=== PATIENT | female | born 1960 | race Two or more races ===

== ENCOUNTER 2024-06-23 10:59 | Outpatient (REF) | payer MEDICAID, SELFPAY ==
--- OUTSIDE RECORDS SUMMARY | 2024-06-23 12:19 | XMS_ITS | Encounter Summary ---
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 Name Role Phone Unavailable Primary Care Provider Unavailabl e Reason for Referral * Consultation (Routine) - Authorized Specialty Diagnoses / Procedures Referred By Estela t Referred To Contact Optometry Diagnoses Type 2 diabetes mellitus with hyperglycemia, without long-term current use of insulin (CMS/HCC) Primary hypertension Naheed Howe MD [address] [place] [address] Phone: tel: fax: [facility] [address] [place] [address] Phone: tel: fax: Referral ID Status Reason Start Date Expiration Date Visits Requested Visits Authorized [id number] Authorized Consult and Treat 06/23/2024 06/23/2025 1 1 * Consultation (Routine) - Authorized Specialty Diagnoses / Procedures Referred By Estela diamond Referred To Contact Behavioral Health Diagnoses Major depression with psychotic features ([facility]/HCC) Naheed Howe MD [address] [place] [address] Phone: tel: fax: Referral ID Status Reason Start Date Expiration Date Visits Requested Visits Authorized [id number] Authorized Specialty Services Required 06/23/2024 06/23/2025 1 1 Reason for Visit * Reason Comments Med Refill Encounter Details Date Type Department Care Team (Latest Contact Info) Description 06/23/2024 10:40 AM EST Office Visit [facility] [address] [place] [address] Naheed Howe MD [address] [place] [address] Arthralgia, unspecified joint (Primary Dx); Major depression with psychotic features (CMS/HCC); Type 2 diabetes mellitus with hyperglycemia, without long-term current use of insulin (CMS/HCC); Primary hypertension; Acquired hypothyroidism Social History Tobacco Use Types Packs/Day Years Used Date Smoking Tobacco: Never Smokeless Tobacco: Never Tobacco Cessation:Counseling Given: Not Answered Comments Unknown Sex and Gender Information Value Date Recorded Sex Assigned at Female 12/18/2022 9:30 AM EDT Legal Sex Female 9:29 AM EDT Gender Identity Female 12/18/2022 9:30 AM EDT Sexual Orientation Don't know 12/18/2022 9: 30 AM EDT documented as of this encounter Last Filed Vital Signs Vital Sign Reading Time Taken Comments Blood Pressure 124/69 06/23/2024 10:15 AM EST Pulse 69 06/23/2024 10:15 AM EST Temperature 36 ??C (96.8 ??F) 06/23/2024 10:15 AM EST Respiratory Rate 18 06/23/2024 10:15 AM EST Oxygen Saturation 96% 06/23/2024 10:15 AM EST Inhaled Oxygen Concentration - - Weight 81.5 kg (179 lb 9.6 oz) 06/23/2024 10:15 AM EST Height - - Body Mass Index - - documented in this encounter Progress Notes * Naheed Howe MD - 06/23/2024 10:40 AM EST SUBJECTIVE: Ember Rodriguez is a 64 y.o. year old female who presents for [facility]/MANAGEMENT SPECIALIST needs meds . Denies recent illness, injury, or hospitalization. Patient here for new patient visit. She comes in with her daughter, she recently moved in from [place] on March 2024 due to mental health issues. PMHx: Hypertension, diabetes, hypothyroidism, major depression with psychotic features (recurrent hospitalizations, last hospitalization in [place] on March 2024 due to psychosis event). PSHx: BTL SocHx: She moved into some [place] on March 2024 where she used to live with her siblings. She is currently living with her daughter and her other daughter lives nearby, she has another daughter who lives in [place] and another 1 in [place]. She has a son that at age 20. She does not drink, she does not smoke or uses any recreational substances. She is from her for many years. Meds: Listed on medication list. She did not bring psych medications but reportedly her family sending them from [place] as they are controlled substances. Acute Concerns: Complaint of generalized bodyaches, arthralgias mainly in shoulders and knees x many years. She hasnot had any recent fall or accidents, she does not take any medication for that. Negative rash, fever, weight loss, diarrhea. Social History Social History Narrative She is from her . Lives with her daughter, has her 3 daughters on different states. She is currently unemployed, used to work many years ago, apparently stopped working due to disability Patient Active Problem List Diagnosis Major depression with psychotic features ([facility]) Type 2 diabetes mellitus with hyperglycemia, without long-term current use of insulin ([facility]) Primary hypertension Acquired hypothyroidism Arthralgia No family history on file. Review of Systems Constitutional: Negative for chills, fatigue and fever. HENT: Negative for congestion, ear pain, nosebleeds, rhinorrhea, sinus pressure, sore throat and trouble swallowing. Eyes: Negative for pain and discharge. Respiratory: Negative for cough, chest tightness and shortness of breath. Cardiovascular: Negative for chest pain, palpitations and leg swelling. Gastrointestinal: Negative for abdominal pain, blood in stool, constipation, diarrhea and nausea. Endocrine: Negative for polydipsia and polyuria. Genitourinary: Negative for dysuria, frequency, genital sores, pelvic pain and vaginal discharge. Musculoskeletal: Positive for arthralgias. Negative for back pain and neck pain. Skin: Negative for rash. Allergic/Immunologic: Negative for environmental allergies. Neurological: Negative for dizziness, seizures, weakness, light-headedness and headaches. Hematological: Negative for adenopathy. Psychiatric/Behavioral: Positive for confusion. Negative for agitation, behavioral problems, self-injury and suicidal ideas. The patient is nervous/anxious. OBJECTIVE: Vitals: 06/23/24 1015 BP: 124/69 Pulse: 69 Resp: 18 Temp: 96.8 ??F (36 ??C) SpO2: 96% Physical Exam HENT: Right Ear: Tympanic membrane and ear canal normal. Left Ear: Tympanic membrane and ear canal normal. Mouth/Throat: Mouth: Mucous membranes are moist. Pharynx: No oropharyngeal exudate or posterior oropharyngeal erythema. Eyes: Pupils: Pupils are equal, round, and reactive to light. Cardiovascular: Rate and Rhythm: Regular rhythm. Pulses: Normal pulses. Heart sounds: Normal heart sounds. No murmur heard. Pulmonary: Breath sounds: Normal breath sounds. Abdominal: General: Bowel sounds are normal. Palpations: Abdomen is soft. Tenderness: There is no abdominal tenderness. Musculoskeletal: Right shoulder: Tenderness present. Decreased range of motion. Left shoulder: Tenderness present. Right elbow: Tenderness present. Right hand: Tenderness present. Decreased range of motion. Decreased strength. Left hand: Decreased strength. Cervical back: Neck supple. Lumbar back: Tenderness present. Right knee: Decreased range of motion. Tenderness present over the medial joint line, MCL and patellar tendon. Skin: General: Skin is warm. Neurological: General: No focal deficit present. Mental Status: She is alert. Cranial Nerves: Cranial nerves 2-12 are intact. Motor: Motor function is intact. Coordination: Coordination is intact. Gait: Gait is intact. Psychiatric: Mood and Affect: Affect is flat. Speech: Speech is delayed. Behavior: Behavior normal. Behavior is cooperative. Thought Content: Thought content does not include homicidal or suicidal plan. Problem List Items Addressed This Visit Arthralgia - Primary Most likely OA, unclear if is related to medication side effect. Will start Tylenol twice daily x 1 to 2 weeks then as needed and follow-up with PCP Reconsult as needed if symptoms do not improve. Relevant Orders Hepatic Function Panel Major depression with psychotic features (CMS/HCC) Patient with flat affect, probably related to medications. Day will bring medications at next appointment, she will continue to take same medication from previous psychiatry until then. She feels safe at home and is able to reach out for safety, her family member is with her 24/11. Referred to team for evaluation, may need psychiatry evaluation for medications as well. Needs to follow-up with PCP in 1 to 2 months Relevant Orders Referral to Behavioral Health Syphilis Screen TSH with Reflex to Free T4 T-SPOT??.TB Type 2 diabetes mellitus with hyperglycemia, without long-term current use of insulin (CMS/HCC) Continue metformin 500 mg twice daily for now, tolerates well. Check labs including A1c and call back as needed abnormal results and follow-up with PCP 1 to 2 months Family will bring glucometer to order supplies of the same brand. Counseled re more frequent low calorie/carb meals. Check fgstk 1x daily Encouraged physical activity as tolerated. Referred to eye clinic Relevant Orders Comprehensive Metabolic Panel CBC auto differential Lipid Panel with Reflex to Direct LDL Vitamin D, 25-Hydroxy, Total, Immunoassay Albumin, Random Urine W/Creatinine Referral to Optometry Hemoglobin A1c Primary hypertension Controlled. Compliant w/meds Continue losartan 25mg and fu w me in 2mo Ordered labs Counseled re low salt diet/increase moderate physical activity. Check home BP BIW and prn CP/[facility]/MALIN Non smoking patient. Relevant Orders CBC auto differential Lipid Panel with Reflex to Direct LDL Referral to Optometry Acquired hypothyroidism Continue levothyroxine 88 mcg/day for now and check TSH, will call back as needed if medications need to be adjusted Follow-up with new PCP in 2 to 3 months Follow Up: No current outpatient medications on file prior to visit. No current facility-administered medications on file prior to visit. documented in this encounter Miscellaneous Notes * Assessment & Plan Note - Naheed Howe MD - 06/23/2024 11:43 AM EST Associated Problem(s): Arthralgia Most likely OA, unclear if is related to medication side effect. Will start Tylenol twice daily x 1 to 2 weeks then as needed and follow-up with PCP Reconsult as needed if symptoms do not improve. * Assessment & Plan Note - Naheed Howe MD - 06/23/2024 11:42 AM EST Associated Problem(s): Major depression with psychotic features (CMS/HCC) Patient with flat affect, probably related to medications. Day will bring medications at next appointment, she will continue to take same medication from previous psychiatry until then. She feels safe at home and is able to reach out for safety, her family member is with her 24/11. Referred to team for evaluation, may need psychiatry evaluation for medications as well. Needs to follow-up with PCP in 1 to 2 months * Assessment & Plan Note - Naheed Howe MD - 06/23/2024 11:41 AM EST Associated Problem(s): Type 2 diabetes mellitus with hyperglycemia, without long-term current use of insulin ([facility]) Continue metformin 500 mg twice daily for now, tolerates well. Check labs including A1c and call back as needed abnormal results and follow-up with PCP 1 to 2 months Family will bring glucometer to order supplies of the same brand. Counseled re more frequent low calorie/carb meals. Check fgstk 1x daily Encouraged physical activity as tolerated. Referred to eye clinic * Assessment & Plan Note - Naheed Howe MD - 06/23/2024 11:39 AM EST Associated Problem(s): Acquired hypothyroidism Continue levothyroxine 88 mcg/day for now and check TSH, will call back as needed if medications need to be adjusted Follow-up with new PCP in 2 to 3 months * Assessment & Plan Note - Naheed Howe MD - 06/23/2024 11:39 AM EST Associated Problem(s): Primary hypertension Controlled. Compliant w/meds Continue losartan 25mg and fu w me in 2mo Ordered labs Counseled re low salt diet/increase moderate physical activity. Check home BP BIW and prn CP/[facility]/MALIN Non smoking patient. documented in this encounter Plan of Treatment Upcoming Encounters Date Type Department Care Team (Late st Contact Info) Description 08/11/2024 9:45 AM EDT Office Visit [facility] MEDICINE [address] [place] [address] Naheed Howe MD [address] [place] [address] Scheduled Orders Name Type Priority Associated Diagnoses Orde r Schedule Comprehensive Metabolic Panel Lab Routine Type 2 diabetes mellitus with hyperglycemia, without long-term current use of insulin (CMS/HCC) Expected: 06/23/2024 (Approximate), Expires: 06/23/2025 CBC auto differential Lab Routine Type 2 diabetes mellitus with hyperglycemia, without long-term current use of insulin (CMS/HCC) Primary hypertension Expected: 06/23/2024 (Approximate), Expires: 06/23/2025 Lipid Panel with Reflex to Direct LDL Lab Routine Type 2 diabetes mellitus with hyperglycemia, without long-term current use of insulin (CMS/HCC) Primary hypertension Expected: 06/23/2024 (Approximate), Expires: 06/23/2025 Syphilis Screen Lab Routine Major depression with psychotic features (CMS/HCC) Expected: 06/23/2024 (Approximate), Expires: 06/23/2025 TSH with Reflex to Free T4 Lab Routine Major depression with psychotic features (CMS/HCC) Expected: 06/23/2024 (Approximate), Expires: 06/23/2025 T-SPOT??.TB Lab Routine Major depression with psychotic features (CMS/HCC) Expected: 06/23/2024 (Approximate), Expires: 06/23/2025 Vitamin D, 25-Hydroxy, Total, Immunoassay Lab Routine Type 2 diabetes mellitus with hyperglycemia, without long-term current use of insulin (CMS/HCC) Expected: 06/23/2024 (Approximate), Expires: 06/23/2025 Hepatic Function Panel Lab Routine Arthralgia, unspecified joint Expected: 06/23/2024 (Approximate), Expires: 06/23/2025 Albumin, Random Urine W/Creatinine Lab Routine Type 2 diabetes mellitus with hyperglycemia, without long-term current use of insulin (CMS/HCC) Expected: 06/23/2024 (Approximate), Expires: 06/23/2025 Hemoglobin A1c Lab Routine Type 2 diabetes mellitus with hyperglycemia, without long-term current use of insulin (CMS/HCC) Expected: 06/23/2024 (Approximate), Expires: 06/23/2025 Scheduled Referrals Name Type Priority Associated Diagnoses Orde r Schedule Referral to Behavioral Health Outpatient Referral Routine Major depression with psychotic features (CMS/HCC) Expected: 06/23/2024 (Approximate), Expires: 06/23/2025 Referral to Optometry Outpatient Referral Routine Type 2 diabetes mellitus with hyperglycemia, without long-term current use of insulin ([facility]) Primary hypertension Expected: 06/23/2024 (Approximate), Expires: 06/23/2025 documented as of this encounter Visit Diagnoses Diagnosis Arthralgia, unspecified joint- Primary Major depression with psychotic features ([facility]) Type 2 diabetes mellitus with hyperglycemia, without long-term current use of insulin ([facility]) Primary hypertension Unspecified essential hypertension Acquired hypothyroidism Unspecified hypothyroidism documented in this encounter
--- OUTSIDE RECORDS SUMMARY | 2024-06-23 12:19 | XMS_ITS | Encounter Summary ---
Author Organization [employer] Address [address] [facility] 7t [place] [address] Care Team Providers Care Shed Hand Name Role Phone Unavailable Primary Care Provider Unavailabl e Reason for Visit * Reason Onset Date Comments EMR records search 06/23/2024 Encounter Details Date Type Department Care Team (Late st Contact Info) Description 06/23/2024 Telephone [facility] [address] [place] [address] Petra Lawson RN EMR records search Social History Tobacco Use Types Packs/Day Years Used Date Smoking Tobacco: Never Smokeless Tobacco: Never Comments Unknown Sex and Gender Information Value Date Recorded Sex Assigned at Female 12/18/2022 9:30 AM EDT Legal Sex Female 9:29 AM EDT Gender Identity Female 12/18/2022 9:30 AM EDT Sexual Orientation Don't know 12/18/2022 9: 30 AM EDT documented as of this encounter Miscellaneous Notes * Telephone Encounter - Petra Lawson RN - 06/23/2024 10:39 AM EST Pt is new to [facility]. Outreach done x 2 years in 2022 and 2023 to contact pt to establish care without success. Pt is Yemeni speaking. Care Everywhere medical records search does not display any pt records. Pt is in [facility] visit at this time. documented in this encounter Plan of Treatment Upcoming Encounters Date Type Department Care Team (Late st Contact Info) Description 08/11/2024 9:45 AM EDT Office Visit [facility] MED[facility] [address] [place] [address] Naheed Howe MD [address] [place] [address] documented as of this encounter Visit Diagnoses Not on filedocumented in this encounter
--- OUTSIDE RECORDS SUMMARY | 2024-06-23 12:19 | XMS_ITS | Clinical Summary ---
Author Organization [employer] Address [address] [facility] [address]t [place] [address] Care Team Providers Care Professor Of Medicine Name Role Phone Unavailable Primary Care Provider Unavailabl e Allergies No known active allergies Medications metFORMIN (Glucophage) 500 MG tablet Take 1 tablet (500 mg) by mouth with breakfast and with evening meal. 60 tablet 11 5 06/23/19 26 Active losartan (Cozaar) 25 MG tablet Take 1 tablet (25 mg) by mouth Once per day. 30 tablet 11 5 06/23/19 26 Active levothyroxine (Synthroid) 88 MCG tablet Take 1 tablet (88 mcg) by mouth before breakfast. 30 tablet 11 5 06/23/19 26 Active acetaminophen (Tylenol Extra Strength) 500 MG tablet Take 1 tablet (500 mg) by mouth every 6 (six) hours if needed for mild pain. 120 tablet 5 07/24/19 25 Active Active Problems Problem Noted Date Diagnosed Date Major depression with psychotic features 025 Assessment & Plan (06/23/2024 11:42 AM EST): Patient with flat affect, probably related to [...] with PCP in 1 to 2 months Type 2 diabetes mellitus wit h hyperglycemia, without long-term current use of insulin 06/23/2024 Assessment & Plan (06/23/2024 11:41 AM EST): Continue metformin 500 mg twice daily for now, tolerates well. Check labs including A1c and call back as needed abnormal results and follow-up with PCP 1 to 2 months Family will bring glucometer to order supplies of the same brand. Counseled re more frequent low calorie/carb meals. Check fgstk 1x daily Encouraged physical activity as tolerated. Referred to eye clinic Primary hypertension 06/23/2024 Assessment & Plan (06/23/2024 11:39 AM EST): Controlled. Compliant w/meds Continue losartan 25mg and fu w me in 2mo Ordered labs Counseled re low salt diet/increase moderate physical activity. Check home BP BIW and prn CP/GREENWOOD/MALIN Non smoking patient. Acquired hypothyroidism 06/23/2024 Assessment & Plan (06/23/2024 11:39 AM EST): Continue levothyroxine 88 mcg/day for now and check TSH, will call back as needed if medications need to be adjusted Follow-up with new PCP in 2 to 3 months Arthralgia 06/23/2024 Assessment & Plan (06/23/2024 11:43 AM EST): Most likely OA, unclear if is related to medication side effect. Will start Tylenol twice daily x 1 to 2 weeks then as needed and follow-up with PCP Reconsult as needed if symptoms do not improve. Encounters Date Type Department Care Team Description 06/23/2024 10:40 AM EST Office Visit [facility] [address] [place] [id number] Naheed Howe MD Arthralgia, unspecified joint (Primary Dx); Major depression with psychotic features (CMS/HCC); Type 2 diabetes mellitus with hyperglycemia, without long-term current use of insulin (CMS/HCC); Primary hypertension; Acquired hypothyroidism 06/23/2024 Telephone [facility] [address] [place] [address] [phone] Petra Lawson RN EMR records search from Last 3 Months Social History Tobacco Use Types Packs/Day Years Used Date Smoking Tobacco: Never Smokeless Tobacco: Never Tobacco Cessation:Counseling Given: Not Answered Comments Unknown Sex and Gender Information Value Date Recorded Sex Assigned at Female 12/18/2022 9:30 AM EDT Legal Sex Female 9:29 AM EDT Gender Identity Female 12/18/2022 9:30 AM EDT Sexual Orientation Don't know 12/18/2022 9: 30 AM EDT Last Filed Vital Signs Vital Sign Reading [...] - - Body Mass Index - - Plan of Treatment Upcoming Encounters Date Type Department Care Team (Late st Contact Info) Description 08/11/2024 9:45 AM EDT Office Visit [facility] [address] [place], [place] [phone] Naheed Howe MD [address] [place] [address] Health Maintenance Due Date Last Done Comments CT Colonography 1962 Colonoscopy 1962 Colorectal Cancer Screening 1962 Depression Screening 1962 Diabetes: Hemoglobin A1C 1962 FIT DNA/Cologuard 1962 FIT 1962 FOBT 1962 HIV Screening 1962 Lipid Panel 1962 SDOH Screening 1962 Sigmoidoscopy 1962 Diabetes: Foot Exam 1972 Eye Exam 1972 Alcohol/Substance Use Screening 1974 Hepatitis C Screening 1980 DTaP/Tdap/Td Vaccines (1 - Tdap) 1981 Diabetes: Urine Protein Screening 1981 Pneumococcal Vaccine: 50+ Ye ars (1 of 2 - PCV) 1981 Pap Smear 1983 Cervical Cancer Screening 1992 HPV/Cotest 1992 Mammogram 2002 Zoster Vaccines (1 of 2) 2012 COVID-19 Vaccine ( - 2023-2 5 season) 2024 Influenza Vaccine (#1) 2024 Tobacco Screening 06/23/2025 06/23/2024 RSV Patients and Pa tients Aged 60 years or older (1 - 1-dose 75+ series) 2037 HIB Vaccines Aged Out No longer eligi ble based on patient's age to complete this topic HPV Vaccines Aged Out No longer eligi ble based on patient's age to complete this topic Hepatitis A Vaccines Aged Out No long er eligible based on patient's age to complete this topic Hepatitis B Vaccines Aged Out No long er eligible based on patient's age to complete this topic IPV Vaccines Aged Out No longer eligi ble based on patient's age to complete this topic Meningococcal Vaccine Aged Out No bebe brittnee eligible based on patient's age to complete this topic RSV under 20 months Aged Out No longe r eligible based on patient's age to complete this topic Rotavirus Vaccines Aged Out No longer eligible based on patient's age to complete this topic Insurance [facility] C3
--- OUTSIDE RECORDS SUMMARY | 2024-06-23 12:19 | XMS_ITS | Encounter Summary ---
Author Organization [employer] Address [address] [place] [address] [address] [place] [address] Care Team Providers Care Damage Cutter Name Role Phone Unavailable Primary Care Provider Unavailabl e Reason for Visit * Reason Onset Date Comments New Patient 12/18/2022 Encounter Details Date Type Department Care Team (Late st Contact Info) Description 12/18/2022 Telephone [facility] [address] [place] [address] Luke Lantigua MD [address] [place], [place] [phone] New Patient Social History Tobacco Use Types Packs/Day Years Used Date Smoking Tobacco: Never Assessed Comments Unknown Sex and Gender Information Value Date Recorded Sex Assigned at Female 12/18/2022 9:30 AM EDT Legal Sex Female 9:29 AM EDT Gender Identity Female 12/18/2022 9:30 AM EDT Sexual Orientation Don't know 12/18/2022 9: 30 AM EDT documented as of this encounter Miscellaneous Notes * Telephone Encounter - Mariama Martínez - 12/18/2022 9:32 AM EDT 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 EFFECTIVE SINCE 12/18/2022 documented in this encounter Plan of Treatment Upcoming Encounters Date Type Department Care Team (Late st Contact Info) Description 08/11/2024 9:45 AM EDT Office Visit [facility] [address] [place], [place] [phone] Naheed Howe MD [address] [place] [address] documented as of this encounter Visit Diagnoses Not on filedocumented in this encounter
[2024-06-23 13:20] LABS: MANUAL DIFF FLAG NO
[2024-06-23 13:31] LABS: Basophils Absolute Auto 0.1 X10*3/uL (0.0-0.2); Eosinophils Absolute Auto 0.2 X10*3/uL (0.0-0.4); Eosinophils Percent Auto 2.9 % (0-4); Hematocrit 38.3 % (37.0-47.0); Hemoglobin 12.7 g/dl (12.0-16.0); Imm Gran Abs Auto 0.01 X10*3/uL (0.00-0.03); Imm Gran Pct Auto 0.1 % (0.0-0.4); Lymphocytes Absolute Auto 2.4 X10*3/uL (1.2-4.9); Lymphocytes Percent Auto 34.2 % (20-40); Mean Corpuscular HGB Conc 33.2 g/dl (31.0-35.0); Mean Corpuscular Hemoglobin 31.2 pg (27.0-33.0); Mean Corpuscular Volume 94.1 fL (80.0-98.0); Mean Platelet Volume 10.8 fL (9.4-12.3); Monocytes Absolute Auto 0.4 X10*3/uL (0.1-1.2); Monocytes Percent Auto 5.5 % (2-11); Neutrophils Absolute Auto 3.9 x10*3/uL (2.0-8.3); Neutrophils Percent Auto 56.3 % (45-73); Platelet Count 272 X10*3/uL (160-400); Red Blood Count 4.07 X10*6/uL (4.20-5.50); White Blood Count 6.9 X10*3/uL (4.8-10.8)
[2024-06-23 13:43] LABS: Alanine Aminotransferase 14 U/L (0-31); Albumin Level 4.2 g/dL (3.5-5.0); Alkaline Phosphatase 88 U/L (39-117); Anion Gap 11 (12-20); Aspartate Amino Transferase 21 U/L (5-31); Bilirubin Direct 0.2 mg/dL (0.0-0.5); Bilirubin Total 0.4 mg/dL (0.0-1.0); Blood Urea Nitrogen 14 mg/dL (9-16); Calcium 9.7 mg/dL (8.4-10.2); Carbon Dioxide 29 mmol/L (22-29); Chloride 104 mmol/L (96-108); Cholesterol 217 mg/dL (<200); Estimated Glomerular Filt Rate > 60; Glucose Random 102 mg/dL (60-115); HDL Cholesterol 61 mg/dL (>40); LDL Cholesterol Calculated 135 mg/dL (<100); Potassium 4.1 mmol/L (3.3-5.1); Sodium 140 mmol/L (135-145); Triglycerides 106 mg/dL (<150)
[2024-06-23 13:45] LABS: Estimated Average Glucose 123 mg/dL; Hemoglobin A1C 135.4349 umol/L; Hemoglobin A1c % 5.9 % (<6.0); Total Hemoglobin (HGBA1C) 3287.3487 umol/L
[2024-06-23 13:48] LABS: Microalbum/Creatinine Ratio Ur 11.6 ug/mg cr (<30)
[2024-06-23 14:01] LABS: TSH reflex Free T4 1.32 uIU/mL (0.32-4.0); Vitamin D 25-OH Total 76.6 ng/mL (>30)
[2024-06-23 14:11] LABS: Reflex LDLD? No
[2024-06-24 08:41] LABS: Syphilis Screen Nonreactive (Nonreactive)
[2024-06-26 16:09] LABS: TS Negative Control Passed; TS Panel A 0; TS Panel B 1; TS Positive Control Passed; TSpotTB Negative (Negative)
== END 2024-06-23 11:00 | disposition home or self-care (01) ==
LOC: HO.HHCL 10:59
PROVIDERS: Visit Provider Internal Medicine
DX: E11.65 Type 2 diabetes mellitus with hyperglycemia (principal); I10 Essential (primary) hypertension; F32.3 Major depressive disorder, single episode, severe with psychotic features; M25.50 Pain in unspecified joint
CPT/HCPCS: 36415; 80053; 80061; 82043; 82248; 82306; 82570; 83036; 84443; 85025; 86481; 86780

== ENCOUNTER 2024-08-11 16:06 | Outpatient (REF) | payer MEDICAID, SELFPAY ==
--- OUTSIDE RECORDS SUMMARY | 2024-08-11 18:00 | XMS_ITS | Encounter Summary ---
Author Organization [email or web address] Address [address] [facility] [address] [place] [address] Care Team Providers Care Housing Assistant Property Manager Name Role Phone Naheed Howe MD Primary Care Provider + Reason for Referral * Consultation (Routine) - Pending Review Specialty Diagnoses / Procedures Referred By Estela diamond Referred To Contact Gastroenterology Diagnoses Encounter for screening colonoscopy Naheed Howe MD [address] [place] [address] Phone: tel: fax: Referral ID Status Reason Start Date Expiration Date Visits Requested Visits Authorized [id number] Pending Review Specialty Services Required 08/11/2024 08/11/2025 1 1 * Imaging (Routine) - Authorized Specialty Diagnoses / Procedures Referred By Estela diamond Referred To Contact Radiology Diagnoses Painful lumpy left breast Procedures BI US Breast Limited Left Naheed Howe MD [address] [place] [address] Phone: tel: fax: [address] Phone: tel: fax: Referral ID Status Reason Start Date Expiration Date V isits Requested Visits Authorized [id number] Authorized 08/11/2024 08/11/2025 1 1 * Imaging (Routine) - Authorized Specialty Diagnoses / Procedures Referred By Estela diamond Referred To Contact Radiology Diagnoses Screening mammogram, encounter for Procedures BI Mammogram Screening Tomosynthesis Bilateral Naheed Howe MD [address] [place] [address] Phone: tel: fax: [address] Phone: tel: fax: Referral ID Status Reason Start Date Expiration Date V isits Requested Visits Authorized [id number] Authorized 08/11/2024 08/11/2025 1 1 * Consultation (Routine) - Pending Review Specialty Diagnoses / Procedures Referred By Estela diamond Referred To Contact Audiology Diagnoses Decreased hearing of both ears Naheed Howe MD [address] [place], [place] Phone: tel: fax: Referral ID Status Reason Start Date Expiration Date Visits Requested Visits Authorized [id number] Pending Review Specialty Services Required 08/11/2024 08/11/2025 1 1 * Imaging (Routine) - Authorized Specialty Diagnoses / Procedures Referred By Estela diamond Referred To Contact Radiology Diagnoses Chronic post-traumatic headache, not intractable Procedures CT Head w/o Contrast Naheed Howe MD [address] [place] [address] Phone: tel: fax: [address] Phone: tel: fax: Referral ID Status Reason Start Date Expiration Date V isits Requested Visits Authorized [id number] Authorized 08/11/2024 08/11/2025 1 1 Reason for Visit * Reason Comments New patient Encounter Details Date Type Department Care Team (Late st Contact Info) Description 08/11/2024 9:45 AM EDT Office Visit [facility] [address] [place] [address] Naheed Howe MD [address] [place] [address] Type 2 diabetes mellitus with hyperglycemia, without long-term current use of insulin (CMS/HCC) (Primary Dx); Primary hypertension; Acquired hypothyroidism; Vulvar lesion; Major depression with psychotic features (CMS/HCC); Breast lesion; Tinnitus of both ears; Encounter for screening colonoscopy; Chronic post-traumatic headache, not intractable; Decreased hearing of both ears; Painful lumpy left breast; Screening mammogram, encounter for Social History Tobacco Use Types Packs/Day Years Used Date Smoking Tobacco: Never Smokeless Tobacco: Never Tobacco Cessation:Counseling Given: Not Answered Depression Answer Date Recorded Patient Health Questionnaire-9 Score 21 08/11/2024 Patient Health Questionnaire-9 Score 21 08/11/2024 Last PHQ-9: Questionnaire Data Not on file 0 08/11/2024 Housing Stability Answer Date Recorded What is your housing situation today? I have shelia koch 08/02/[address] you li ve. Do you have problems with any of the following? None of the above 08/02/2024 Food Insecurity Answer Date Recorded Within the past 12 months, y ou worried that your food would run out before you got money to buy more: Never True 08/02/2024 Within the past 12 months,th e food you bought just didn't last and you didn't have enough money to get more: Never True 05/2024 Transportation Answer Date Recorded In the past 12 months, has l ack of transportation kept you from medical appts, meetings, work or from getting things needed for daily living? No 08/02/2024 Utilities Answer Date Recorded In the past 12 months, has t he electric, gas, oil or water company threatened to shut off services in your home? No 08/02/2024 Depression Answer Date Recorded Patient Health Questionnaire-2 Score 6 08/11/2024 Internet Access Answer Date Recorded Internet Access Q1 No 08/11/2024 Internet Access Q2 I do not want or need it 08/02 Comments Unknown Sex and Gender Information Value Date Recorded Sex Assigned at Female 12/18/2022 9:30 AM EDT Legal Sex Female 9:29 AM EDT Gender Identity Female 12/18/2022 9:30 AM EDT Sexual Orientation Don't know 12/18/2022 9: 30 AM EDT documented as of this encounter Last Filed Vital Signs Vital Sign Reading Time Taken Comments Blood Pressure 123/57 08/11/2024 9:42 AM EDT Pulse 76 08/11/2024 9:42 AM EDT Temperature 36.1 ??C (97 ??F) 08/11/2024 9:42 AM EDT Respiratory Rate 16 08/11/2024 9:42 AM EDT Oxygen Saturation 98% 08/11/2024 9:42 AM EDT Inhaled Oxygen Concentration - - Weight 80.3 kg (177 lb 2 oz) 08/11/2024 9:42 AM EDT Height 152.4 cm (5') 08/11/2024 9:42 AM EDT Body Mass Index 34.59 08/11/2024 9:42 AM EDT documented in this encounter Plan of Treatment Upcoming Encounters Date Type Department Care Team (Late st Contact Info) Description 09/22/2024 9:45 AM EDT Office Visit [facility] [address] [place] [address] Dotty Huang, OD [address] [place] [address] Scheduled Orders Name Type Priority Associated Diagnoses Orde r Schedule Ferritin Lab Routine Type 2 diabetes mellitus with hyperglycemia, without long-term current use of insulin ([facility]) Expected: 08/11/2024, Expires: 08/11/2025 CT Head w/o Contrast Imaging Routine Chronic post-traumatic headache, not intractable Expected: 08/11/2024 (Approximate), Expires: 08/11/2025 Chlamydia/N. Gonorrhoeae RNA, TMA, Urogenitial Microbiology Routine Vulvar lesion Ordered: 08/11/2024 Bacterial Vaginosis Microbiology Routine Vulvar lesion Expected: 08/11/2024 (Approximate), Expires: 08/11/2025 Herpes Simplex Virus Culture with Reflex Typing Microbiology Routine Vulvar lesion Expected: 08/11/2024 (Approximate), Expires: 08/11/2025 BI Mammogram Screening Tomosynthesis Bilateral Imaging Routine Screening mammogram, encounter for Expected: 08/11/2024 (Approximate), Expires: 10/11/2025 BI US Breast Limited Left Imaging Routine Painful lumpy left breast Expected: 08/11/2024 (Approximate), Expires: 08/11/2025 Scheduled Referrals Name Type Priority Associated Diagnoses Order Schedule Referral to Audiology Outpatient Referral Routine Decreased hearing of both ears Expected: 08/11/2024 (Approximate), Expires: 08/11/2025 Referral to Gastroenterology Outpatient Referral Routine Encounter for screening colonoscopy Expected: 08/11/2024 (Approximate), Expires: 08/11/2025 documented as of this encounter Procedures Procedure Name Priority Date/Time Associated Diagnosis Comments POCT GLUCOSE Routine 08/11/2024 9:44 AM EDT Type 2 diabetes mellitus with hyperglycemia, without long-term current use of insulin (CMS/[facility]) documented in this encounter Results * POCT Glucose (08/11/2024 9:44 AM EDT) [facility] Glucose Blood, POC 137 60 - 200 mg/dL QC Media Lot # [id number] Lot# Expiration Date [id number] Blood Capillary blood specimen / Unknown 08/11/2024 9:44 AM EDT Naheed Howe MD POINT OF CARE TEST ENTER /EDIT ORDERABLES Final Result documented in this encounter Visit Diagnoses Diagnosis Type 2 diabetes mellitus with hyperglycemia, without long-term current use of insulin (CMS/HCC)- Primary Primary hypertension Unspecified essential hypertension Acquired hypothyroidism Unspecified hypothyroidism Vulvar lesion Other specified noninflammatory disorder of vulva and perineum Major depression with psychotic features (CMS/HCC) Breast lesion Tinnitus of both ears Unspecified tinnitus Encounter for screening colonoscopy Chronic post-traumatic headache, not intractable Decreased hearing of both ears Painful lumpy left breast Screening mammogram, encounter for documented in this encounter Additional Health Concerns Assessment Noted Time PHQ-9 Depression Total Score: 21 025 10:30 AM EDT documented as of this encounter Care Teams Housing Assistant Property Manager Relationship Specialty Start Date End Date Naheed Howe MD [address] [place] [address] PCP - General Internal Medicine 08/11/24 documented as of this encounter
--- OUTSIDE RECORDS SUMMARY | 2024-08-11 18:00 | XMS_ITS | Encounter Summary ---
Author Organization [employer] Address [address] [place] [address] [address] [place] [address] Care Team Providers Care Server Assistant Name Role Phone Naheed Howe MD Primary Care Provider + Reason for Visit * Reason Onset Date Comments New Patient 12/18/2022 Encounter Details Date Type Department Care Team (Late st Contact Info) Description 12/18/[address] [facility] [address] [place] [address] Luke Lantigua MD [address] [place] [address] New Patient Social History Tobacco Use Types [...] been transfer over to wait list for ADMINISTRATIVE INTERN. EFFECTIVE SINCE 12/18/2022 documented in this encounter Plan of Treatment Upcoming Encounters Date Type Department Care Team (Late st Contact Info) Description 09/22/2024 9:45 AM EDT Office Visit [facility] [address] [place] [address] Dotty Huang, OD [address] [place] [address] documented as of this encounter Visit Diagnoses Not on filedocumented in this encounter Care Teams Server Assistant Relationship Specialty Start Date End Date Naheed Howe MD [address] [place] [address] PCP - General Internal Medicine 08/11/24 documented as of this encounter
--- OUTSIDE RECORDS SUMMARY | 2024-08-11 18:00 | XMS_ITS | Encounter Summary ---
Author Organization [employer] Address [address] [facility] [address] [place] [address] Care Team Providers Care Kieselguhr Regenerator Operator Name Role Phone Unavailable Primary Care Provider Unavailabl e Reason for Visit * Reason Onset Date Comments Chart prep 08/09/2024 Encounter Details Date Type Department Care Team ([facility] st Contact Info) Description 08/09/2024 Telephone [facility] [address] [place] [address] Sloane Monge [place] Chart prep Social History Tobacco Use Types Packs/Day Years Used Date Smoking Tobacco: Never Smokeless Tobacco: Never Housing Stability Answer Date Recorded What is [...] off services in your home? No 08/02/2024 Internet Access Answer Date Recorded Internet Access Q1 Yes 08/02/2024 Internet Access Q2 Not on file 08/02/2024 Comments Unknown Sex and Gender Information Value Date Recorded Sex Assigned at Female 12/18/2022 9:30 AM EDT Legal Sex Female 9:29 AM EDT Gender Identity Female 12/18/2022 9:30 AM EDT Sexual Orientation Don't know 12/18/2022 9: 30 AM EDT documented as of this encounter Miscellaneous Notes * Telephone Encounter - Sloane Monge [place] - 08/09/2024 2:40 PM EDT Chart Prep Labs: done Images: not applicable Vaccines due: yes Referrals: appointment pending Screenings: colonoscopy, mammogram, and pap smear Overdue care gaps: Glucose and PHQ-9 documented in this encounter Plan of Treatment Upcoming Encounters Date Type Department Care Team (Late st Contact Info) Description 09/22/2024 9:45 AM EDT Office Visit [facility] [address] [place] [address] Dotty Huang, OD [address] [place] [address] documented as of this encounter Visit Diagnoses Not on filedocumented in this encounter
--- OUTSIDE RECORDS SUMMARY | 2024-08-11 18:00 | XMS_ITS | Clinical Summary ---
Author Organization [employer] Address [address] [facility] 7[address] [place] [address] Care Team Providers Care Marine Service Station Attendant Name Role Phone Naheed Howe MD Primary Care Provider + Allergies No known active allergies Medications * This document contains information received from the source organization and may not represent a complete record from that organization. metFORMIN (Glucophage) 500 MG tablet Take 1 tablet (500 mg) by mouth with breakfast and with evening meal. 60 tablet 06/23/19 25 026 Active losartan (Cozaar) 25 MG tablet Take 1 tablet (25 mg) by mouth Once per day. 30 tablet 11 06/23/19 25 026 Active levothyroxine (Synthroid) 88 MCG tablet Take 1 tablet (88 mcg) by mouth before breakfast. 30 tablet 06/23/19 25 026 Active Blood Pressure Monitoring (Blood Pressure Cuff) misc Use daily as prescribed 1 each 08/12/19 25 Active FREESTYLE LITE test strip Use to test blood sugar 1x times daily 100 each 08/12/19 25 026 Active Lancets misc Use to test blood sugar 1x times daily 100 each 08/12/19 25 Active Alcohol Swabs 70 % pads Use to test blood sugar 1x times daily 100 each 08/12/19 25 Active Blood Glucose Monitoring Suppl (FreeStyle Gratiot Lite) w/Device kit Use to test blood sugar 1x times daily 1 kit 08/12/19 25 Active valACYclovir (Valtrex) 1 g tablet Take 1 tablet (1,000 mg) by mouth Once per day for 5 days. 5 tablet 3 08/12/19 25 025 Active risperiDONE (RisperDAL) 2 MG tabletIndicati ons:Major Depressive Disorder Take 1 tablet (2 mg) by mouth with evening meal. 90 tablet 08/12/19 25 Active traZODone (Desyrel) 50 MG tablet Take 1 tablet (50 mg) by mouth if needed at bedtime for sleep. 90 tablet 08/12/19 25 Active sertraline (Zoloft) 100 MG tablet Take 1 tablet (100 mg) by mouth Once per day. To take with 25mg tablet, Total dose of 125mg/d 90 tablet 08/12/19 25 026 Active sertraline (Zoloft) 25 MG tablet Take 1 tablet (25 mg) by mouth Once per day. To take with 100mg tablet, Total dose of 125mg/d 90 tablet 08/12/19 25 Active acetaminophen (Tylenol Extra Strength) 500 MG tablet Take 1 tablet (500 mg) by mouth every 6 (six) hours if needed for mild pain. 120 tablet 06/23/19 25 025 sertraline (Zoloft) 100 MG tablet Take 1 tablet (100 mg) by mouth Once per day. 90 tablet 08/12/19 25 025 Discontinued sertraline (Zoloft) 25 MG tablet Take 1 tablet (25 mg) by mouth Once per day. 90 tablet 08/12/19 25 025 Discontinued Active Problems Problem Noted Date Diagnosed Date Vulvar lesion 08/11/2024 Breast lesion 08/11/2024 Tinnitus of both ears 08/11/2024 Encounter for screening colonoscopy 08/11/2024 Major depression with psychotic features 025 Assessment [...] needed if symptoms do not improve. Encounters * This document contains information received from the source organization and may not represent a complete record from that organization. Date Type Department Care Team Description 08/11/2024 9:45 AM EDT Office Visit [facility] [address] [place] [phone] Naheed Howe MD Type 2 diabetes mellitus with hyperglycemia, without long-term current use of insulin (CMS/HCC) (Primary Dx); Primary hypertension; Acquired hypothyroidism; Vulvar lesion; Major depression with psychotic features (CMS/HCC); Breast lesion; Tinnitus of both ears; Encounter for screening colonoscopy; Chronic post-traumatic headache, not intractable; Decreased hearing of both ears; Painful lumpy left breast; Screening mammogram, encounter for 08/11/2024 Travel 08/09/[address] [facility] [address] [place] [phone] Sloane Monge MA Chart prep 08/03/2024 Population Health Risk Score [facility] () Department [address] [place] [phone] Provider, Population Health Generic 08/02/2024 Patient Outreach [facility] [address] [place] [phone] Naheed Howe MD Pre-visit Planning (SDOH screening negative and tobacco screening negative) 06/30/2024 Telephone [facility] [address] [place] [address] Em Larose MA DTA Application (I called the patient at [phone], to inform her that her DTA application cannot be completed at this time, because she has to be evaluated by her PCP. I reached a recording stating that the person is not available. I was unable to leave a message. I then called her emergency contact Hilda, and reached a voicemail. I left a message, asking the patient to return my call at ext [phone]. She has a TIRE SETTER appointment on 08/11/24 at 9:30.) 06/23/2024 10:40 AM EST Office Visit [facility] [address] [place] [phone] Naheed Howe MD Arthralgia, unspecified joint (Primary Dx); Major depression with psychotic features (CMS/HCC); Type 2 diabetes mellitus with hyperglycemia, without long-term current use of insulin (CMS/HCC); Primary hypertension; Acquired hypothyroidism 06/23/[address] [facility] [address] [place] [phone] Petra Lawson RN EMR records search from [...] Mass Index 34.59 08/11/2024 9:42 AM EDT Plan of Treatment Upcoming Encounters Date Type Department Care Team (Late st Contact Info) Description 09/22/2024 9:45 AM EDT Office Visit [facility] [address] [place] [address] Dotty Huang, OD [address] [place] [address] Health Maintenance Due Date Last Done Comments CT Colonography 1962 Colonoscopy 1962 Colorectal Cancer Screening 1962 FIT DNA/Cologuard 1962 FIT 1962 FOBT 1962 HIV Screening 1962 Sigmoidoscopy 1962 Diabetes: Foot Exam 1972 Eye Exam 1972 Alcohol/Substance Use Screening 1974 Hepatitis C Screening 1980 DTaP/Tdap/Td Vaccines (1 - Tdap) 1981 Pneumococcal Vaccine: 50+ Years (1 of 2 - PCV) 1981 Pap Smear 1983 Cervical Cancer Screening 1992 HPV/Cotest 1992 Mammogram 2002 Zoster Vaccines (1 of 2) 2012 COVID-19 Vaccine ( - 2023-2 5 season) 2024 Influenza Vaccine (#1) 2024 Diabetes: Hemoglobin A1C 12/21/2024 06/23/2024 Depression Monitoring 02/10/2025 08/11/2024 , 08/11/2024 Diabetes: Urine Protein Screening 06/23/2025 06/23/2024 Lipid Panel 06/23/2025 06/23/2024 Depression Screening 08/11/2025 08/11/2024, 08/11/2024 SDOH Screening 08/11/2025 08/11/2024 Tobacco Screening 08/11/2025 08/11/2024 RSV Patients and Patients Aged 60 years or older (1 - [...] on patient's age to complete this topic Procedures Procedure Name Priority Date/Time Associated Diagnosis Comments POCT GLUCOSE Routine 08/11/2024 9:44 AM EDT Type 2 diabetes mellitus with hyperglycemia, without long-term current use of insulin (CMS/HCC) HEMOGLOBIN A1C Routine 06/23/2024 11:03 AM EST Type 2 diabetes mellitus with hyperglycemia, without long-term current use of insulin (CMS/HCC) ALBUMIN, RANDOM URINE W/CREATININE Routine 06/23/2024 11:03 AM EST Type 2 diabetes mellitus with hyperglycemia, without long-term current use of insulin (CMS/HCC) HEPATIC FUNCTION PANEL Routine 06/23/2024 11:03 AM EST Arthralgia, unspecified joint VITAMIN D,25-OH,TOTAL,IA Routine 06/23/2024 11:03 AM EST Type 2 diabetes mellitus with hyperglycemia, without long-term current use of insulin (CMS/HCC) T-SPOT(R).TB Routine 06/23/2024 11:03 AM EST Major depression with psychotic features (CMS/HCC) TSH W/REFLEX TO FT4 Routine 06/23/2024 1 1:03 AM EST Major depression with psychotic features (CMS/HCC) SYPHILIS SCREEN Routine 06/23/2024 11:03 AM EST Major depression with psychotic features (CMS/HCC) LIPID PANEL WITH REFLEX TO DIRECT LDL Routine 06/23/2024 11:03 AM EST Type 2 diabetes mellitus with hyperglycemia, without long-term current use of insulin (CMS/HCC) Primary hypertension CBC WITH AUTO DIFFERENTIAL Routine 06/23/2024 11:03 AM EST Type 2 diabetes mellitus with hyperglycemia, without long-term current use of insulin ([facility]) Primary hypertension COMPREHENSIVE METABOLIC PANEL Routine 06/23/2024 11:03 AM EST Type 2 diabetes mellitus with hyperglycemia, without long-term current use of insulin ([facility]) from Last 3 Months Results * POCT Glucose (08/11/2024 9:44 AM EDT) Glucose Blood, POC 137 60 - 200 mg/dL QC Media Lot # [id number] Lot# Expiration Date Blood Capillary blood specimen / Unknown 08/11/2024 9:44 AM EDT Naheed Howe MD POINT OF CARE TEST ENTER /EDIT ORDERABLES Final Result * Syphilis Screen (06/23/2024 11:03 AM EST) Syphilis Screen Nonreactive Nonreactive [facility] Blood 06/23/2024 11:0 3 AM EST 06/23/2024 1:12 PM EST Naheed Howe MD LAB BLOOD ORDERABLES Fin al Result [facility] [address] [place] [address] [phone] * Vitamin D, 25-Hydroxy, Total, Immunoassay (06/23/2024 11:03 AM EST) Vitamin D 25-OH Total 76.6 >30 ng/mL [facility] Comment:Health Based Referen ce Values*< 20 ng/mL Sedulbsiy41-75 ng/mL Insufficient> 30 ng/mL Sufficient*Yuni BYERS. N Engl J Med. 2007;357:266-280Care must be taken in interpreting Vitamin D results fromdifferent laboratories and methodologies. Published datademonstrated that results from patients undergoinghemodialysis may show a negative bias when tested withvarious automated 25-OH vitamin D assays when compared toLC-MS/MS.When testing samples from patients whose predominant form ofVitamin D is Vitamin D2, such as patients receiving VitaminD2 supplementation, results that are subtherapeutic shouldbe confirmed with another method such as LC-MS/MS. Blood 06/23/2024 11:0 3 AM EST 06/23/2024 1:12 PM EST us Naheed Howe MD LAB BLOOD ORDERABLES Fin al Result [facility] [address] [place] [phone] * T-SPOT??.TB (06/23/2024 11:03 AM EST) Pathologist [facility] T Spot TB Negative Negative [facility] Comment:A negative test resu lt does not exclude the possibilityof exposure to or infection with Mycobacteriumtuberculosis (M. tuberculosis). Patients with recentexposure to TB infected individuals exhibiting anegative T-SPOT.TB result should be considered forretesting within 6 weeks or if other relevant clinicalsymptoms indicate. Results from T-SPOT.TB testing mustbe used in conjunction with each individual'sepidemiological history, current medical status,and results of other diagnostic evaluations.The T-SPOT.TB test is qualitative and results arereported as positive, borderline, or negative, giventhat the test controls perform as expected. In linewith the Centers for Disease Control and Prevention's2010 recommendation to report quantitative measurementsalongside the qualitative result, the laboratoryprovides spot counts for informational purposes only.The T-SPOT.TB test should not be interpreted as aquantitative test. TS PANEL A 0 [facility] TS PANEL B 1 [facility] Negative Control Passed [facility] Positive Control Passed [facility] Comment:For additional infor esa, please refer tohttp://education.[employer]/faq/BJJ329(This link is being provided for informational/educational purposes only.)THIS TEST WAS PERFORMED AT:[employer]/DAKSHA [id number] [place] [address]LKUUALJJESSICA HOLT MD,PHD 06/23/2024 11:0 3 AM EST 06/23/2024 1:12 PM EST us Naheed Howe MD LAB BLOOD ORDERABLES Fin al Result Performing Organization Address City/[facility]/ZIP Co de Phone Number [facility] [address] [place] [phone] * TSH with Reflex to Free T4 (06/23/2024 11:03 AM EST) TSH reflex Free T4 1.32 0.32 - 4.0 uIU/mL [facility] Blood 06/23/2024 11:0 3 AM EST 06/23/2024 1:12 PM EST us Naheed Howe MD LAB BLOOD ORDERABLES Fin al Result Performing Organization Address City/[facility] Co de Phone Number [facility] [address] [place] [phone] * (ABNORMAL) Lipid Panel with Reflex to Direct LDL (06/23/2024 11:03 AM EST) Triglycerides 106 <150 mg/dL [facility] Comment:Desirable Triglyceri de: less than 150 mg/dLBorderline High Triglyceride 150-199 mg/dLHigh Triglyceride: 200-499 mg/dLVery High Triglyceride: greater than or equal to 5OO mg/dL Cholesterol 217(H) <200 mg/dL [facility] Comment:Desirable Cholestero l: less than 200 mg/dLBorderline High Cholesterol: 200-239 mg/dLHigh Cholesterol: greater than 239 mg/dL LDL Cholesterol Calculated 135(H) <100 mg/dL [facility] Comment:Desirable LDL: less than 100 mg/dLNear Optimal/Above Optimal LDL: 110- 129 mg/dLBorderline High LDL: 130-159 mg/dLHigh LDL: 160-189 mg/dLVery High LDL: greater than or equal to 190 mg/dL HDL Cholesterol 61 >40 mg/dL [facility] Comment:Desirable HDL: great er than 40 mg/dL Note: This HDL assay may give artificially low results in patients with liver disease. Blood 06/23/2024 11:0 3 AM EST 06/23/2024 1:12 PM EST Naheed Howe MD LAB BLOOD ORDERABLES Fin al Result Performing Organization Address [facility] de Phone Number [facility] [address] [place] [address] [phone] * Albumin, Random Urine W/Creatinine (06/23/2024 11:03 AM EST) Creatinine, Urine 136.90 mg/dL [facility] Microalbumin Urine 16.0 mg/L [facility] Microalbum Creatinine Ratio Ur 11.6 <30 ug/mg cr [facility] Comment:Albumin/Creatinine R atio Reference Ranges: Normal: < 30 ug/mg creatinine Microalbuminuria: 30 - 300 ug/mg creatinineClinical Albuminuria: > 300 ug/mg creatinine Urine (Urine, Random) 06/23/2024 11:03 AM EST 06/23/2024 1:11 PM EST us Naheed Howe MD LAB URINE ORDERABLES Fin al Result Performing Organization Address [facility] de Phone Number [facility] [address] [place] [address] [phone] * (ABNORMAL) CBC auto differential (06/23/2024 11:03 AM EST) White Blood Count 6.9 4.8 - 10.8 X10*3/uL [facility] Red Blood Count 4.07(L) 4.20 - 5.50 X10*6/uL [facility] Hemoglobin 12.7 12.0 - 16.0 g/dl [facility] Hematocrit 38.3 37.0 - 47.0 % [facility] Mean Corpuscular Volume 94.1 80.0 - 98.0 fL [facility] Mean Corpuscular Hemoglobin 31.2 27.0 - 33.0 pg [facility] Mean Corpuscular HGB Conc 33.2 31.0 - 35.0 g/dl [facility] Red Cell Distribution Width 12.0 11.0 - 16.0 % [facility] Platelet Count 272 160 - 400 X10*3/uL [facility] Mean Platelet Volume 10.8 9.4 - 12.3 fL [facility] Neutrophils Percent Auto 56.3 45 - 73 % [facility] Imm Gran Pct Auto 0.1 0.0 - 0.4 % [facility] Lymphocytes Percent Auto 34.2 20 - 40 % [facility] Monocytes Percent Auto 5.5 2 - 11 % [facility] Eosinophils Percent Auto 2.9 0 - 4 % [facility] Basophils Percent Auto 1.0 0 - 2 % [facility] NRBC Pct Auto 0.0 0.0 - 0.2 /100WBC [facility] Neutrophils Absolute Auto 3.9 2.0 - 8.3 x10*3/uL [facility] Imm Gran Abs Auto 0.01 0.00 - 0.03 X10*3/uL [facility] Lymphocytes Absolute Auto 2.4 1.2 - 4.9 X10*3/uL [facility] Monocytes Absolute Auto 0.4 0.1 - 1.2 X10*3/uL [facility] Eosinophils Absolute Auto 0.2 0.0 - 0.4 X10*3/uL [facility] Basophils Absolute Auto 0.1 0.0 - 0.2 X10*3/uL [facility] NRBC Abs Auto 0.000 0.0 - 0.012 X10*3/uL [facility] Blood Venous blood specimen / Unknown 06/23/2024 11:03 AM EST 06/23/2024 1:12 PM EST us Naheed Howe MD LAB BLOOD ORDERABLES Fin al Result Performing Organization Address [facility]/ZIP Co de Phone Number [facility] [address] [place] [address] [phone] * Hemoglobin A1c (06/23/2024 11:03 AM EST) Hemoglobin A1c 5.9 <6.0 % [facility] Comment:Hemoglobin A1C Refer ence Range Adults: 4.8 - 6.0 % Non diabetic: < 6.0 % Goal: < 7.0 %Additional Action Suggested: > 8.0 %Note: Hemoglobin A1c results are invalid for patients with abnormal amounts of HbF. Blood transfusions may impact the HbA1c concentration in the patient sample. Estimated Average Glucose 123 mg/dL [facility] Comment:eAG = Estimated ave rage glucose which is %A1C expressed asaverage glucose, using the formula of the C8A-GbdipwrMmrxwqh Glucose study (ADAG), Diabetes Care, Vol.31,#8,Dec. 2007 Blood Venous blood specimen / Unknown 06/23/2024 11:03 AM EST 06/23/2024 1:12 PM EST Naheed Howe MD LAB BLOOD ORDERABLES Fin al Result Performing Organization Address [facility] Co de Phone Number [facility] [address] [place] [address] [phone] * Hepatic Function Panel (06/23/2024 11:03 AM EST) Bilirubin, Direct 0.2 0.0 - 0.5 mg/dL [facility] Blood Venous blood specimen / Unknown 06/23/2024 11:03 AM EST 06/23/2024 1:12 PM EST Nhaeed Howe MD LAB BLOOD ORDERABLES Fin al Result Performing Organization Address [facility] Co de Phone Number [facility] [address] [place] [address] [phone] * (ABNORMAL) Comprehensive Metabolic Panel (06/23/2024 11:03 AM EST) Sodium 140 135 - 145 mmol/L [facility] Potassium 4.1 3.3 - 5.1 mmol/L [facility] Chloride 104 96 - 108 mmol/L [facility] Carbon Dioxide 29 22 - 29 mmol/L [facility] Anion Gap 11(L) 12 - 20 [facility] Urea Nitrogen (BUN) 14 9 - 16 mg/dL [facility] Creatinine, Serum 0.71 0.5 - 1.4 mg/dL [facility] Estimated Glomerular Filt Rate >60 [facility] Comment:Chronic Kidney Disea se: Estimated GFR < 60 mL/min/1.07o3Vubkgc Kidney Disease: Estimated GFR < 15 mL/min/1.73m2 Glucose 102 60 - 115 mg/dL [facility] Calcium 9.7 8.4 - 10.2 mg/dL [facility] Bilirubin, Total 0.4 0.0 - 1.0 mg/dL [facility] Aspartate Amino Transferase 21 5 - 31 U/L [facility] Alanine Aminotransferase 14 0 - 31 U/L [facility] Total Protein 8.0 6.5 - 8.0 g/dL [facility] Albumin Level 4.2 3.5 - 5.0 g/dL [facility] Alkaline Phosphatase 88 39 - 117 U/L [facility] Blood Venous blood specimen / Unknown 06/23/2024 11:03 AM EST 06/23/2024 1:12 PM EST us Naheed Howe MD LAB BLOOD ORDERABLES Fin al Result [facility] [address] [place] [phone] from Last 3 Months Insurance [facility] C3 Care Teams Marine Service Station Attendant Relationship Specialty Start Date End Date Naheed Howe MD [address] [place] [phone] PCP - General Internal Medicine 08/11/24
--- OUTSIDE RECORDS SUMMARY | 2024-08-11 18:00 | XMS_ITS | Encounter Summary ---
Author Organization [employer] Address [address] [facility] [address] [place] [address] Care Team Providers Care Gold Leaf Printer Name Role Phone Naheed Howe MD Primary Care Provider + Encounter Details Date Type Department Care Team (Latest Contact Info) Description 08/11/2024 Travel Social History Tobacco Use Types Packs/Day Years Used Date Smoking Tobacco: Never Smokeless Tobacco: Never Depression Answer Date Recorded Patient Health Questionnaire-9 [...] AM EDT documented as of this encounter Plan of Treatment Upcoming Encounters Date Type Department Care Team (Late st Contact Info) Description 09/22/2024 9:45 AM EDT Office Visit [facility] [address] [place], [place] [phone] Dotty Huang, OD [address] [place] [address] documented as of this encounter Visit Diagnoses Not on filedocumented in this encounter Additional Health Concerns Assessment Noted Time PHQ-9 Depression Total Score: 21 025 10:30 AM EDT documented as of this encounter Care Teams Gold Leaf Printer Relationship Specialty Start Date End Date Naheed Howe MD [address] [place] [phone] PCP - General Internal Medicine 08/11/24 documented as of this encounter
[2024-08-12 04:04] LABS: CT PCR NOT DETECTED (Not Detect.); NG PCR NOT DETECTED (Not Detect.)
[2024-08-12 10:25] LABS: Bacterial Vaginosis PCR NEGATIVE (Negative); Candida Group PCR NOT DETECTED (Not Detect); Candida glab krusei PCR NOT DETECTED (Not Detect); Trichomonas vaginalis PCR NOT DETECTED (Not Detect)
== END 2024-08-11 16:07 | disposition home or self-care (01) ==
LOC: HO.HHCLNP 16:06
PROVIDERS: Visit Provider Internal Medicine
DX: N90.89 Other specified noninflammatory disorders of vulva and perineum (principal)
CPT/HCPCS: 81515; 87255; 87491; 87591

== ENCOUNTER 2024-09-16 10:19 | Outpatient (REF) | payer MEDICAID, SELFPAY ==
--- OUTSIDE RECORDS SUMMARY | 2024-09-16 10:37 | XMS_ITS | Encounter Summary ---
Author Organization [employer] Address [address] [place] [address] [address] [place] [address] Care Team Providers Care Meat Market Manager Name Role Phone Naheed Howe MD Primary Care Provider + Reason for Visit * Reason Onset Date Comments New Patient 12/18/2022 Encounter Details Date Type Department Care Team (Late st Contact Info) Description 12/18/2022 Telephone [facility] [address] [place] [phone] Luke Lantigua MD [address] [place] [address] New Patient Social History Tobacco Use Types [...] been transfer over to wait list for PREP MANAGER. EFFECTIVE SINCE 12/18/2022 documented in this encounter Plan of Treatment Upcoming Encounters Date Type Department Care Team (Late st Contact Info) Description 09/22/2024 9:45 AM EDT Office Visit [facility] [address] [place], [place] [phone] Dotty Huang, OD [address] [place] [address] 10/10/2024 10:00 AM EDT Office Visit [facility] [address] [place], [place] [phone] Jessica Elmore [address] [place], [place] [phone] documented as of this encounter Visit Diagnoses Not on filedocumented in this encounter Care Teams Meat Market Manager Relationship Specialty Start Date End Date Naheed Howe MD [address] [place] [phone] PCP - General Internal Medicine 08/11/24 documented as of this encounter
--- OUTSIDE RECORDS SUMMARY | 2024-09-16 10:37 | XMS_ITS | Clinical Summary ---
Author Organization [email or web address] Address [address] [place] [address] Care Team Providers Care Special Education Resource Teacher Name Role Phone Naheed Howe MD Primary Care Provider + Allergies No known active allergies Medications * This document contains information received from the source organization and may not represent a complete record from that organization. metFORMIN (Glucophage) 500 MG tablet Take 1 tablet (500 mg) by mouth with breakfast and with evening meal. 60 tablet 5 06/23/19 26 Active losartan (Cozaar) 25 MG tablet Take 1 tablet (25 mg) by mouth Once per day. 30 tablet 5 06/23/19 26 Active levothyroxine (Synthroid) 88 MCG tablet Take 1 tablet (88 mcg) by mouth before breakfast. 30 tablet 5 06/23/19 26 Active Blood Pressure Monitoring (Blood Pressure Cuff) misc Use daily as prescribed 1 each 5 Active FREESTYLE LITE test strip Use to test blood sugar 1x times daily 100 each 5 08/12/19 26 Active Lancets misc Use to test blood sugar 1x times daily 100 each 5 Active Alcohol Swabs 70 % pads Use to test blood sugar 1x times daily 100 each 5 Active Blood Glucose Monitoring Suppl (FreeStyle Zelienople Lite) w/Device kit Use to test blood sugar 1x times daily 1 kit 5 Active risperiDONE (RisperDAL) 2 MG tabletIndicatio ns:Major Depressive Disorder Take 1 tablet (2 mg) by mouth with evening meal. 90 tablet 5 Active traZODone (Desyrel) 50 MG tablet Take 1 tablet (50 mg) by mouth if needed at bedtime for sleep. 90 tablet 5 Active sertraline (Zoloft) 100 MG tablet Take 1 tablet (100 mg) by mouth Once per day. To take with 25mg tablet, Total dose of 125mg/d 90 tablet 5 08/12/19 26 Active sertraline (Zoloft) 25 MG tablet Take 1 tablet (25 mg) by mouth Once per day. 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 Start Valtrex x 5d (recurrence) and advised to start meds AHMET within the first 572 hours of starting symptoms. She is not sexually active at this time and feels safe. Check STI labs Breast lesion 08/11/2024 Assessment & Plan (08/18/2024 2:03 PM EDT): On left breast at 4-5 O'clock, will order mammogram and breast ultrasound Family will try to retrieve mammogram from [place] as apparently this is not a new finding. Tinnitus of both ears 08/11/2024 Assessment & Plan (08/18/2024 2:08 PM EDT): Reassurance given to patient and family, explained that most of the times the sound will disappear with noise or when patient is speaking. Given that it is related to some hearing loss, I will refer to audiology and follow-up at next visit Encounter for screening colonoscopy 08/11/2024 Assessment & Plan (08/18/2024 2:03 PM EDT): Refer to GI Major depression with psychotic features 025 Assessment & Plan (08/18/2024 2:05 PM EDT): Seems to be stable with no psychotic events, has some flat affect. She has been referred to and will need psychiatry evaluation to adjust medications. I will continue her on Risperdal, Zoloft and rx trazodone as needed only. Patient feels safe at home and is able to reach out for safety, she will call her daughters. The family has crisis number Assessment & Plan (06/23/2024 11:42 AM EST): [...] use of insulin 06/23/2024 Assessment & Plan (08/18/2024 2:09 PM EDT): Controlled, A1c was at goal 2 months ago. Continue metformin 500 mg twice daily for now, tolerates well. Counseled re more frequent low calorie/carb meals. Check fgstk 1x daily Encouraged physical activity as tolerated. She has appointment at eye clinic next month She has not had diabetic neuropathy LDL not at goal, will repeat in 6 months Assessment & Plan (06/23/2024 11:41 AM EST): [...] clinic Primary hypertension 06/23/2024 Assessment & Plan (08/18/2024 1:53 PM EDT): Controlled. Compliant w/meds Continue losartan 25mg and fu w me in 6mo Counseled re low salt diet/increase moderate physical activity. Check home BP BIW and prn CP/[place]/MALIN Non smoking patient. Assessment & Plan (06/23/2024 11:39 AM EST): Controlled. Compliant w/meds Continue losartan 25mg and fu w me in 2mo Ordered labs Counseled re low salt diet/increase moderate physical activity. Check home BP BIW and prn CP/[place]/MALIN Non smoking patient. Acquired hypothyroidism 06/23/2024 Assessment & Plan (08/18/2024 2:00 PM EDT): TSH is at goal, continue levothyroxine 88 mcg/day and follow-up in 6-month Reminded to take the medication on empty stomach Assessment & Plan (06/23/2024 11:39 AM EST): [...] organization. Date Type Department Care Team Description 08/24/2024 Telephone [employer] Information Management [address] [place] [phone] Naheed Howe MD 08/24/2024 Travel 08/11/2024 9:45 AM EDT Office Visit [facility] [address] [place] [phone] Naheed Howe MD Type 2 diabetes mellitus with hyperglycemia, without long-term current use of insulin (CMS/HCC) (Primary Dx); Primary hypertension; Acquired hypothyroidism; Vulvar lesion; Major depression with psychotic features (CMS/HCC); Breast lesion; Tinnitus of both ears; Encounter for screening colonoscopy; Decreased hearing of both ears; Painful lumpy left breast; Screening mammogram, encounter for; Chronic post-traumatic headache, not intractable 08/11/2024 Orders Only [facility] [address] [place] [address] [phone] Naheed Howe MD 08/11/2024 Travel 08/09/2024 Telephone [facility] [address] [place] [phone] Sloane Monge MA Chart prep 08/03/2024 Population Health Risk Score [facility] ([facility]) Department [address] [place] [phone] Provider, Population Health Generic 08/02/2024 Patient Outreach [facility] [address] [place] [phone] Naheed Howe MD Pre-visit Planning (SDOH screening negative and tobacco screening negative) 06/30/2024 Telephone [employer] [facility] [address], [place] [phone] Em Larose MA DTA Application (I called the patient at [phone], to inform her that her DTA application [...] patient to return my call at ext [phone]. She has a [employer]PER[employer] appointment on 08/11/24 at 9:30.) 06/23/2024 10:40 AM EST Office Visit [facility] [address] [place] [phone] Naheed Howe MD Arthralgia, unspecified joint (Primary Dx); Major depression with psychotic features (CMS/HCC); Type 2 diabetes mellitus with hyperglycemia, without long-term current use of insulin (CMS/HCC); Primary hypertension; Acquired hypothyroidism 06/23/2024 Telephone [facility] [address] [place] [address] [phone] Petra Lawson RN EMR records search from [...] Description 09/22/2024 9:45 AM EDT Office Visit [facility] [address] [place], [place] [phone] Dotty Huang, OD [address] [place], [place] [phone] 10/10/2024 10:00 AM EDT Office Visit [facility] [address] [place], [place] [phone] Ramírez, Jessica [address] [place], [place] [phone] Health Maintenance Due Date Last Done Comments [...] (#1) 2024 Diabetes: Hemoglobin A1C 12/21/2024 06/23/2024 Diabetes: Urine Protein Screening 06/23/2025 06/23/2024 Lipid [...] patient's age to complete this topic Meningococcal B Vaccine Aged Out No l onger eligible based on patient's age to complete [...] Procedure Name Priority Date/Time Associated Diagnosis Comments CHLAMYDIA/N. GONORRHOEAE RNA, TMA, UROGENITAL Routine 08/11/2024 4:08 PM EDT Vulvar lesion HERPES CULTURE WITH REFLEX TYPING Routine 08/11/2024 11:00 AM EDT BACTERIAL VAGINOSIS PANEL Routine 08/11/2024 11:00 AM EDT POCT GLUCOSE Routine 08/11/2024 9:44 AM EDT Type 2 diabetes mellitus with hyperglycemia, without long-term current use of insulin ([facility]) HEMOGLOBIN A1C Routine 06/23/2024 11:03 AM EST Type 2 diabetes mellitus with hyperglycemia, without long-term current use of insulin ([facility]) ALBUMIN, RANDOM URINE W/CREATININE Routine 06/23/2024 11:03 AM EST Type 2 diabetes mellitus with hyperglycemia, without long-term current use of insulin ([facility]) HEPATIC FUNCTION PANEL Routine 06/23/2024 11:03 AM [...] current use of insulin (CMS/HCC) Primary hypertension COMPREHENSIVE METABOLIC PANEL Routine 06/23/2024 11:03 AM EST Type 2 diabetes mellitus with hyperglycemia, without long-term current use of insulin (CMS/HCC) from Last 3 Months Results * Chlamydia/N. Gonorrhoeae RNA, TMA, Urogenitial (08/11/2024 4:08 PM EDT) Pathologist [facility] CT PCR NOT DETECTED Not Detect. [facility] Comment:A not detected test result does not exclude the possibilityof infection because test results can be affected byimproper specimen collection, concurrent antibiotic therapy,or the number of organisms in the specimen which may bebelow the sensitivity of the test. As with many diagnostictests, results from the Xpert CT/NG assay should beinterpreted in conjunction with other laboratory andclinical data available to the clinician.Xpert CT/NG performance has not been evaluated in patientsless than 14 years of age. The assay should not be used forthe evaluationof suspected sexual abuse or for other medico-legalindications. Additional testing is recommended in anycircumstance when false positive or false negative resultscould lead to adverse medical, social or psychologicalconsequences. NG PCR NOT DETECTED Not Detect. [facility] Comment:A not detected test result does not exclude the possibilityof infection because test results can be affected byimproper specimen collection, concurrent antibiotic therapy,or the number of organisms in the specimen which may bebelow the sensitivity of the test. As with many diagnostictests, results from the Xpert CT/NG assay should beinterpreted in conjunction with other laboratory andclinical data available to the clinician.Xpert CT/NG performance has not been evaluated in patientsless than 14 years of age. The assay should not be used forthe evaluationof suspected sexual abuse or for other medico-legalindications. Additional testing is recommended in anycircumstance when false positive or false negative resultscould lead to adverse medical, social or psychologicalconsequences. Swab Vaginal structure / Unknown 08/11/2024 4:08 PM EDT 08/12/2024 4:16 AM EDT Narrative [facility] - 08/12/2024 4:16 AM EDT Vaginal us Naheed Howe MD LAB MICROBIOLOGY - GENER AL ORDERABLES Final Result [facility] [address] [place] [phone] * Bacterial Vaginosis (08/11/2024 11:00 AM EDT) TRICHOMONAS VAGINALIS DETECTION BY PCR NOT DETECTED Not Detect [facility] BACTERIAL VAGINOSIS DETECTION BY PCR NEGATIVE Negative [facility] Comment:The BV organism targ ets of the Xpert Xpress MVP test can becommensal in women; Xpert Xpress MVP positive results forbacterial vaginosis should be considered in conjunction withother clinical and patient information to determine thedisease status. Organisms that are not detected by the XpertXpress MVP test have also been reported to be associatedwith BV and aerobic vaginitis.The Xpert Xpress MVP test performance has not been evaluatedin patients under the age of 14. GRISEL GROUP DETECTION BY PCR NOT DETECTED Not Detect [facility] Grisel glab krusei PCR NOT DETECTED Not Detect [facility] 08/11/2024 11:0 0 AM EDT 08/11/2024 4:08 PM EDT us Naheed Howe MD LAB MICROBIOLOGY - GENER AL ORDERABLES Final Result Performing Organization Address [facility] Co de Phone Number [facility] [address] [place] [phone] * (ABNORMAL) Herpes Simplex Virus Culture with Reflex Typing (08/11/2024 11:00 AM EDT) HSV Culture/Type SEE NOTE(A) [facility] Comment:HERPES SIMPLEX VIRUS CULTURE W/RFL TO TYPING Micro Number: [id number] Test Status: Final Specimen Source: Vulva Specimen Quality: Adequate HSV Culture: Isolated HSV TYPE 2: Not Isolated HSV TYPE 1: IsolatedTHIS TEST WAS PERFORMED AT:[employer] [id number] MERATI,MD 08/11/2024 11:0 0 AM EDT 08/11/2024 4:08 PM EDT Narrative [facility] - 08/15/2024 1:27 PM EDT VULVAR LESION us Naheed Howe MD LAB MICROBIOLOGY - GENER AL ORDERABLES Final Result Performing Organization Address [facility] Co de Phone Number [facility] [address] [place] [phone] * POCT Glucose (08/11/2024 9:44 AM EDT) Glucose Blood, POC 137 60 - 200 mg/dL QC Media Lot # [id number] Lot# Expiration Date [id number] Blood Capillary blood specimen / Unknown 08/11/2024 9:44 AM EDT Naheed Howe MD POINT OF CARE TEST ENTER /EDIT ORDERABLES Final Result * Syphilis Screen (06/23/2024 11:03 AM EST) Syphilis Screen Nonreactive Nonreactive [facility] Blood 06/23/2024 11:0 3 AM EST 06/23/2024 1:12 PM EST Naheed Howe MD LAB BLOOD ORDERABLES Fin al Result Performing Organization Address City/[facility]/ZIP Co de Phone Number [facility] [address] [place] [phone] * Vitamin D, 25-Hydroxy, Total, Immunoassay (06/23/2024 11:03 AM EST) Pathologist [facility] Vitamin D 25-OH Total 76.6 >30 ng/mL [facility] Comment:Health Based Referen ce Values*< 20 ng/mL Tuswtrdka46-21 ng/mL Insufficient> 30 ng/mL Sufficient*Yuni BYERS. N [...] ORDERABLES Fin al Result Performing Organization Address [facility] Co de Phone Number [facility] [address] [place] [phone] * T-SPOT??.TB (06/23/2024 11:03 AM EST) T Spot TB Negative Negative [facility] Comment:A negative test resu lt [...] as aquantitative test. TS PANEL A 0 [facility] TS PANEL B 1 [facility] Negative Control Passed [facility] Positive Control Passed [facility] Comment:For additional infor esa, please refer tohttp://education.[employer]/faq/LAW837(This link is being provided for informational/educational purposes only.)THIS TEST WAS PERFORMED AT:[employer]/[id number] [place] [address]JSDGEAJ W. MASON,MD,PHD 06/23/2024 11:0 3 AM EST 06/23/2024 1:12 PM EST Naheed Howe MD LAB BLOOD ORDERABLES Fin al Result [facility] [address] [place], [place] [phone] * TSH with Reflex to Free T4 (06/23/2024 11:03 AM EST) TSH reflex Free T4 1.32 0.32 - 4.0 uIU/mL [facility] Blood 06/23/2024 11:0 3 AM EST 06/23/2024 1:12 PM EST us Naheed Howe MD LAB BLOOD ORDERABLES Fin al Result Performing Organization Address [facility] Co de Phone Number [facility] [address] [place] [phone] * (ABNORMAL) Lipid Panel with Reflex to Direct LDL (06/23/2024 11:03 AM EST) Triglycerides 106 <150 mg/dL [facility] Comment:Desirable Triglyceri de: less than 150 mg/dLBorderline High Triglyceride 150-199 mg/dLHigh Triglyceride: 200-499 mg/dLVery High Triglyceride: greater than or equal to 5OO mg/dL Cholesterol 217(H) <200 mg/dL [facility] Comment:Desirable Cholestero l: less than 200 mg/dLBorderline High Cholesterol: 200-239 mg/dLHigh Cholesterol: greater than 239 mg/dL LDL Cholesterol Calculated 135(H) <100 mg/dL [facility] Comment:Desirable LDL: less than 100 mg/dLNear Optimal/Above Optimal LDL: 110- 129 mg/dLBorderline High LDL: 130-159 mg/dLHigh LDL: 160-189 mg/dLVery High LDL: greater than or equal to 190 mg/dL HDL Cholesterol 61 >40 mg/dL [facility] Comment:Desirable HDL: great er than 40 mg/dL Note: This HDL assay may give artificially low results in patients with liver disease. Blood 06/23/2024 11:0 3 AM EST 06/23/2024 1:12 PM EST us Naheed Howe MD LAB BLOOD ORDERABLES Fin al Result Performing Organization Address City/[facility]/ZIP Co de Phone Number [facility] [address] [place] [phone] * Albumin, Random Urine W/Creatinine (06/23/2024 11:03 AM EST) Creatinine, Urine 136.90 mg/dL [facility] Microalbumin Urine 16.0 mg/L [facility] Microalbum Creatinine Ratio Ur 11.6 <30 ug/mg cr [facility] Comment:Albumin/Creatinine R atio Reference Ranges: Normal: < 30 ug/mg creatinine Microalbuminuria: 30 - 300 ug/mg creatinineClinical Albuminuria: > 300 ug/mg creatinine Urine (Urine, Random) 06/23/2024 11:03 AM EST 06/23/2024 1:11 PM EST us Naheed Howe MD LAB URINE ORDERABLES Fin al Result [facility] [address] [place], [place] [phone] * (ABNORMAL) CBC auto differential (06/23/2024 11:03 AM EST) White Blood Count 6.9 4.8 - 10.8 X10*3/uL [facility] Red Blood Count 4.07(L) 4.20 - 5.50 X10*6/uL [facility] Hemoglobin 12.7 12.0 - 16.0 g/dl [facility] Hematocrit 38.3 37.0 - 47.0 % [facility] Mean Corpuscular Volume 94.1 80.0 - 98.0 fL [facility] Mean Corpuscular Hemoglobin 31.2 27.0 - 33.0 pg [facility] Mean Corpuscular HGB Conc 33.2 31.0 - 35.0 g/dl [facility] Red Cell Distribution Width 12.0 11.0 - 16.0 % [facility] Platelet Count 272 160 - 400 X10*3/uL [facility] Mean Platelet Volume 10.8 9.4 - 12.3 fL [facility] Neutrophils Percent Auto 56.3 45 - 73 % [facility] Imm Gran Pct Auto 0.1 0.0 - 0.4 % [facility] Lymphocytes Percent Auto 34.2 20 - 40 % [facility] Monocytes Percent Auto 5.5 2 - 11 % [facility] Eosinophils Percent Auto 2.9 0 - 4 % [facility] Basophils Percent Auto 1.0 0 - 2 % [facility] NRBC Pct Auto 0.0 0.0 - 0.2 /100WBC [facility] Neutrophils Absolute Auto 3.9 2.0 - 8.3 x10*3/uL [facility] Imm Gran Abs Auto 0.01 0.00 - 0.03 X10*3/uL [facility] Lymphocytes Absolute Auto 2.4 1.2 - 4.9 X10*3/uL [facility] Monocytes Absolute Auto 0.4 0.1 - 1.2 X10*3/uL [facility] Eosinophils Absolute Auto 0.2 0.0 - 0.4 X10*3/uL [facility] Basophils Absolute Auto 0.1 0.0 - 0.2 X10*3/uL [facility] NRBC Abs Auto 0.000 0.0 - 0.012 X10*3/uL [facility] Blood Venous blood specimen / Unknown 06/23/2024 11:03 AM EST 06/23/2024 1:12 PM EST us Naheed Howe MD LAB BLOOD ORDERABLES Fin al Result [facility] [address] [place] [phone] * Hemoglobin A1c (06/23/2024 11:03 AM EST) Hemoglobin A1c 5.9 <6.0 % [facility] Comment:Hemoglobin A1C Refer ence Range Adults: 4.8 - 6.0 % Non diabetic: < 6.0 % Goal: < 7.0 %Additional Action Suggested: > 8.0 %Note: Hemoglobin A1c results are invalid for patients with abnormal amounts of HbF. Blood transfusions may impact the HbA1c concentration in the patient sample. Estimated Average Glucose 123 mg/dL [facility] Comment:eAG = Estimated ave rage glucose which is %A1C expressed asaverage glucose, using the formula of the H6H-HkhsaseLgmhwwh Glucose study (ADAG), Diabetes Care, Vol.31,#8,Dec. 2007 Blood Venous blood specimen / Unknown 06/23/2024 11:03 AM EST 06/23/2024 1:12 PM EST Naheed Howe MD LAB BLOOD ORDERABLES Fin al Result Performing Organization Address [facility]/ZIP Co de Phone Number [facility] [address] [place] [phone] * Hepatic Function Panel (06/23/2024 11:03 AM EST) Bilirubin, Direct 0.2 0.0 - 0.5 mg/dL [facility] Blood Venous blood specimen / Unknown 06/23/2024 11:03 AM EST 06/23/2024 1:12 PM EST Naheed Howe MD LAB BLOOD ORDERABLES Fin al Result Performing Organization Address City/[facility]/ZIP Co de Phone Number [facility] [address] [place] [phone] * (ABNORMAL) Comprehensive Metabolic Panel (06/23/2024 11:03 AM EST) Sodium 140 135 - 145 mmol/L [facility] Potassium 4.1 3.3 - 5.1 mmol/L [facility] Chloride 104 96 - 108 mmol/L [facility] Carbon Dioxide 29 22 - 29 mmol/L [facility] Anion Gap 11(L) 12 - 20 [facility] Urea Nitrogen (BUN) 14 9 - 16 mg/dL [facility] Creatinine, Serum 0.71 0.5 - 1.4 mg/dL [facility] Estimated Glomerular Filt Rate >60 [facility] Comment:Chronic Kidney Disea se: Estimated GFR < 60 mL/min/1.37q8Uctbbq Kidney Disease: Estimated GFR < 15 mL/min/1.73m2 Glucose 102 60 - 115 mg/dL [facility] Calcium 9.7 8.4 - 10.2 mg/dL [facility] Bilirubin, Total 0.4 0.0 - 1.0 mg/dL [facility] Aspartate Amino Transferase 21 5 - 31 U/L [facility] Alanine Aminotransferase 14 0 - 31 U/L [facility] Total Protein 8.0 6.5 - 8.0 g/dL [facility] Albumin Level 4.2 3.5 - 5.0 g/dL [facility] Alkaline Phosphatase 88 39 - 117 U/L [facility] Blood Venous blood specimen / Unknown 06/23/2024 11:03 AM EST 06/23/2024 1:12 PM EST Naheed Howe MD LAB BLOOD ORDERABLES Fin al Result [facility] [address] [place] [phone] from Last 3 Months Insurance [facility] C3 DENTAL-[facility] MEDICAID STAND ADULT Care Teams Special Education Resource Teacher Relationship Specialty Start Date End Date Naheed Howe MD [address] [place] [phone] PCP - General Internal Medicine 08/11/24
--- NOTE | 2024-09-16 13:24 | MHC.AU.MED ---
Medical Clearance for Hearing Instrumentation Date: 09/16/24 Patient Name: Ember Rodriguez Date of : 1960 Primary Care Provider: Referring Provider: Naheed Howe MD We have seen your patient on 09/16/24 and have determined that they are a candidate for amplification (See accompanying report). Specifically, they would benefit from: Hearing aid use in both ears There is a statute that addresses Medical Evaluation Requirements prior to fitting a patient with a hearing aid. According to [place] statute 265 CMR:6.03(1), (a) General. Except as provided in 265 CMR 6.03(1)(b), a supervisor wool shearing shall not sell a hearing aid unless the prospective user has presented to the supervisor wool shearing a written statement signed by a licensed physician that states that the patient's hearing loss has been medically evaluated and the patient may be considered a candidate for a hearing aid. The medical evaluation must have taken place within the preceding six months. Please note: Due to the [place] Statute referenced above, we cannot accept a signature other than that of a licensed physician. BARREL BURNER and PA signatures cannot be accepted. I am in agreement with the above recommendation. There is no medical contraindication for hearing instrumentation. Physician Signature Date Physician Name (Printed)
== END 2024-09-16 10:20 | disposition home or self-care (01) ==
LOC: HO.SH 10:19
PROVIDERS: Visit Provider Internal Medicine
DX: Z01.118 Encounter for examination of ears and hearing with other abnormal findings (principal); Z46.1 Encounter for fitting and adjustment of hearing aid; H90.3 Sensorineural hearing loss, bilateral
CPT/HCPCS: 92557; 92591

== ENCOUNTER 2024-09-20 13:07 | Outpatient (REF) | payer MEDICAID, SELFPAY ==
--- NOTE | ~2024-09-20 | CT_ITS ---
CLINICAL HISTORY: hx head concusion CT head without contrast Comparison: None Findings: No intracranial mass, midline shift, hydrocephalus, or acute hemorrhage. No acute process in sinuses or mastoids. No acute bony abnormality. Impression: No acute intracranial process This document has been electronically signed by: Franc Kan MD on 09/20/2024 21:38:27
--- OUTSIDE RECORDS SUMMARY | 2024-09-20 14:11 | XMS_ITS | Clinical Summary ---
Author Organization [employer] Address [address] [facility] 7t [place] [address] Care Team Providers Care Medical Asst Name Role Phone Naheed Howe MD Primary [...] 5 Active Blood Glucose Monitoring Suppl (FreeStyle [place] Lite) w/Device kit Use to test blood [...] [place] as apparently this is not a new [...] organization. Date Type Department Care Team Description 09/20/2024 Telephone [facility] [address] [place] [address] Marleni Graff RN Paperwork/Forms 08/24/2024 Telephone [facility] [address] [place] [address] Naheed Howe MD 08/24/2024 Travel 08/11/2024 9:45 AM EDT Office Visit [facility] MED[facility] [address] [place] [address] Naheed Howe MD Type 2 diabetes mellitus with hyperglycemia, without long-term current use of insulin (CMS/HCC) (Primary Dx); Primary hypertension; Acquired hypothyroidism; Vulvar lesion; Major depression with psychotic features (CMS/HCC); Breast lesion; Tinnitus of both ears; Encounter for screening colonoscopy; Decreased hearing of both ears; Painful lumpy left breast; Screening mammogram, encounter for; Chronic post-traumatic headache, not intractable 08/11/2024 Orders Only [facility] [address] [place] [phone] Naheed Howe MD 08/11/2024 Travel 08/09/2024 Telephone [facility] [address] [place] [phone] Sloane Monge MA Chart prep 08/03/2024 Population Health Risk Score Community [facility] ([facility]) Department [address] [place] [address] [phone] Provider, Population Health Generic 08/02/2024 Patient Outreach [facility] [address] [place] [address] [phone] Naheed Howe MD Pre-visit Planning (SDOH screening negative and tobacco screening negative) 06/30/2024 Telephone [facility] [address] [place] [address] Em Larose MA DTA Application (I called the patient at [phone], to inform her that her DTA application [...] patient to return my call at ext [phone] or [phone]. 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 a TERRESTRIAL ECOLOGIST appointment on 08/11/24 at 9:30.) 06/23/2024 10:40 AM EST Office Visit [facility] [address] [place] [phone] Naheed Howe MD Arthralgia, unspecified joint (Primary Dx); Major depression with psychotic features (CMS/HCC); Type 2 diabetes mellitus with hyperglycemia, without long-term current use of insulin (CMS/HCC); Primary hypertension; Acquired hypothyroidism 06/23/2024 Telephone [facility] [address] [place] [phone] Petra Lawson RN EMR records search from [...] 09/22/2024 9:45 AM EDT Office Visit [facility] OPTOMETRY [address] [place] [address] Dotty Huang, OD [address] [place] [address] 10/10/2024 10:00 AM EDT Office Visit [facility] [address] [place], [place] [phone] Jessica Elmore [address] [place], [place] [phone] Health Maintenance Due Date Last Done Comments [...] Vaccines (1 of 2) 2012 COVID-19 Vaccine (1 - 2023-2 5 season) 2024 Influenza Vaccine (#1) 2024 Diabetes: Hemoglobin A1C 12/21/2024 06/23/2024 Diabetes: Urine Protein Screening 06/23/2025 06/23/2024 Lipid Panel 06/23/2025 06/23/2024 Depression Screening 08/11/2025 08/11/2024, 08/11/2024 Disability Screening 08/11/2025 08/11/2024 SDOH Screening 08/11/2025 08/11/2024 Tobacco Screening [...] hyperglycemia, without long-term current use of insulin ([facility]) HEMOGLOBIN A1C Routine 06/23/2024 11:03 AM EST Type 2 diabetes mellitus with hyperglycemia, without long-term current use of insulin (CMS/[facility]) ALBUMIN, RANDOM URINE W/CREATININE Routine 06/23/2024 11:03 AM EST Type 2 diabetes mellitus with hyperglycemia, without long-term current use of insulin (CMS/[facility]) HEPATIC FUNCTION PANEL Routine 06/23/2024 11:03 AM [...] RNA, TMA, Urogenitial (08/11/2024 4:08 PM EDT) CT PCR NOT DETECTED Not Detect. [facility] Comment:A not detected test result [...] psychologicalconsequences. NG PCR NOT DETECTED Not Detect. [facility] Comment:A not detected test result [...] PM EDT 08/12/2024 4:16 AM EDT Narrative [facility] - 08/12/2024 4:16 AM EDT Vaginal us Naheed Howe MD LAB MICROBIOLOGY - GENER AL ORDERABLES Final Result [facility] [address] [place] [phone] * Bacterial Vaginosis (08/11/2024 11:00 AM EDT) TRICHOMONAS VAGINALIS DETECTION BY PCR NOT DETECTED Not Detect [facility] BACTERIAL VAGINOSIS DETECTION BY PCR NEGATIVE Negative [facility] Comment:The BV organism targ ets [...] DETECTION BY PCR NOT DETECTED Not Detect [facility] Grisel glab krusei PCR NOT DETECTED Not Detect [facility] 08/11/2024 11:0 0 AM EDT 08/11/2024 4:08 PM EDT Naheed Howe MD LAB MICROBIOLOGY - GENER AL ORDERABLES Final Result Performing Organization Address [facility]/ZIP Co de Phone Number [facility] [address] [place] [address] [phone] * (ABNORMAL) Herpes Simplex Virus Culture with Reflex Typing (08/11/2024 11:00 AM EDT) HSV Culture/Type SEE NOTE(A) [facility] Comment:HERPES SIMPLEX VIRUS CULTURE W/RFL TO TYPING Micro Number: [id number] Test Status: Final Specimen Source: Vulva Specimen Quality: Adequate HSV Culture: Isolated HSV TYPE 2: Not Isolated HSV TYPE 1: IsolatedTHIS TEST WAS PERFORMED AT:[employer] [id number] MERATI,MD 08/11/2024 11:0 0 AM EDT 08/11/2024 4:08 PM EDT Narrative [facility] - 08/15/2024 1:27 PM EDT VULVAR LESION us Naheed Howe MD LAB MICROBIOLOGY - GENER AL ORDERABLES Final Result Performing Organization Address [facility] Co de Phone Number [facility] [address] [place] [phone] * POCT Glucose (08/11/2024 9:44 AM EDT) Glucose Blood, POC 137 60 - 200 mg/dL QC Media Lot # [id number] Lot# Expiration Date [id number] Blood Capillary blood specimen / Unknown 08/11/2024 9:44 AM EDT Naheed Howe MD POINT OF CARE TEST ENTER /EDIT ORDERABLES Final Result * Syphilis Screen (06/23/2024 11:03 AM EST) Syphilis Screen Nonreactive Nonreactive [facility] Blood 06/23/2024 11:0 3 AM EST 06/23/2024 1:12 PM EST Naheed Howe MD LAB BLOOD ORDERABLES Fin al Result Performing Organization Address [facility] Co de Phone Number [facility] [address] [place] [phone] * Vitamin D, 25-Hydroxy, Total, Immunoassay (06/23/2024 11:03 AM EST) Vitamin D 25-OH Total 76.6 >30 ng/mL [facility] Comment:Health Based Referen ce Values*< 20 ng/mL [id number] ng/mL Insufficient> 30 ng/mL Sufficient*Yuni BYERS. N [...] ORDERABLES Fin al Result Performing Organization Address [facility]/ZIP Co de Phone Number [facility] [address] [place] [phone] * T-SPOT??.TB (06/23/2024 11:03 AM EST) Pathologist [facility] [place] T Spot TB Negative Negative [facility] Comment:A negative test resu lt [...] as aquantitative test. TS PANEL A 0 [facility] TS PANEL B 1 [facility] Negative Control Passed [facility] Positive Control Passed [facility] Comment:For additional infor esa, please refer [email or web address].WiWide/faq/[email or web address](This link is being provided for informational/educational purposes only.)THIS TEST WAS PERFORMED AT:[employer]/[facility] [place] [address]QBZQOWNJESSICA HOLT MD,PHD 06/23/2024 11:0 3 AM EST 06/23/2024 1:12 PM EST us Naheed Howe MD LAB BLOOD ORDERABLES Fin al Result [facility] [address] [place] [phone] [phone] * TSH with Reflex to Free T4 (06/23/2024 11:03 AM EST) TSH reflex Free T4 1.32 0.32 - 4.0 uIU/mL [facility] Blood 06/23/2024 11:0 3 AM EST 06/23/2024 1:12 PM EST Naheed Howe MD LAB BLOOD ORDERABLES Fin al Result Performing Organization Address [facility] de Phone Number [facility] [address] [place] [phone] * (ABNORMAL) Lipid Panel with Reflex to Direct LDL (06/23/2024 11:03 AM EST) Pathologist [facility] Triglycerides 106 <150 mg/dL [facility] Comment:Desirable Triglyceri de: less than 150 mg/dLBorderline High Triglyceride 150-199 mg/dLHigh Triglyceride: 200-499 mg/dLVery High Triglyceride: greater than or equal to 5OO mg/dL Cholesterol 217(H) <200 mg/dL [facility] Comment:Desirable Cholestero l: less than 200 mg/dLBorderline High Cholesterol: 200-239 mg/dLHigh Cholesterol: greater than 239 mg/dL LDL Cholesterol Calculated 135(H) <100 mg/dL [facility] Comment:Desirable LDL: less than 100 mg/dLNear Optimal/Above Optimal LDL: 110- 129 mg/dLBorderline High LDL: 130-159 mg/dLHigh LDL: 160-189 mg/dLVery High LDL: greater than or equal to 190 mg/dL HDL Cholesterol 61 >40 mg/dL [facility] Comment:Desirable HDL: great er than 40 mg/dL Note: This HDL assay may give artificially low results in patients with liver disease. Blood 06/23/2024 11:0 3 AM EST 06/23/2024 1:12 PM EST Naheed Howe MD LAB BLOOD ORDERABLES Fin al Result Performing Organization Address [facility] Co de Phone Number [facility] [address] [place] [address] [phone] * Albumin, Random Urine W/Creatinine (06/23/2024 11:03 AM EST) Creatinine, Urine 136.90 mg/dL [facility] Microalbumin Urine 16.0 mg/L H [facility] Microalbum Creatinine Ratio Ur 11.6 <30 ug/mg cr [facility] Comment:Albumin/Creatinine R atio Reference Ranges: Normal: < 30 ug/mg creatinine Microalbuminuria: 30 - 300 ug/mg creatinineClinical Albuminuria: > 300 ug/mg creatinine Urine (Urine, Random) 06/23/2024 11:03 AM EST 06/23/2024 1:11 PM EST Naheed Howe MD LAB URINE ORDERABLES Fin al Result [facility] [address] [place] [address] [phone] * (ABNORMAL) CBC auto differential (06/23/2024 11:03 AM EST) White Blood Count 6.9 4.8 - 10.8 X10*3/uL [facility] Red Blood Count 4.07(L) 4.20 - 5.50 X10*6/uL [facility] Hemoglobin 12.7 12.0 - 16.0 g/dl [facility] Hematocrit 38.3 37.0 - 47.0 % [facility] Mean Corpuscular Volume 94.1 80.0 - 98.0 fL [facility] Mean Corpuscular Hemoglobin 31.2 27.0 - 33.0 pg [facility] Mean Corpuscular HGB Conc 33.2 31.0 - 35.0 g/dl [facility] Red Cell Distribution Width 12.0 11.0 - 16.0 % [facility] Platelet Count 272 160 - 400 X10*3/uL [facility] Mean Platelet Volume 10.8 9.4 - 12.3 fL [facility] Neutrophils Percent Auto 56.3 45 - 73 % [facility] Imm Gran Pct Auto 0.1 0.0 - 0.4 % [facility] Lymphocytes Percent Auto 34.2 20 - 40 % [facility] Monocytes Percent Auto 5.5 2 - 11 % [facility] Eosinophils Percent Auto 2.9 0 - 4 % [facility] Basophils Percent Auto 1.0 0 - 2 % [facility] NRBC Pct Auto 0.0 0.0 - 0.2 /100WBC [facility] Neutrophils Absolute Auto 3.9 2.0 - 8.3 x10*3/uL [facility] Imm Gran Abs Auto 0.01 0.00 - 0.03 X10*3/uL [facility] Lymphocytes Absolute Auto 2.4 1.2 - 4.9 X10*3/uL [facility] Monocytes Absolute Auto 0.4 0.1 - 1.2 X10*3/uL [facility] Eosinophils Absolute Auto 0.2 0.0 - 0.4 X10*3/uL [facility] Basophils Absolute Auto 0.1 0.0 - 0.2 X10*3/uL [facility] NRBC Abs Auto 0.000 0.0 - 0.012 X10*3/uL [facility] Blood Venous blood specimen / Unknown 06/23/2024 11:03 AM EST 06/23/2024 1:12 PM EST us Naheed Howe MD LAB BLOOD ORDERABLES Fin al Result [facility] [address] [place] [address] [phone] * Hemoglobin A1c (06/23/2024 11:03 AM EST) Hemoglobin A1c 5.9 <6.0 % [facility] Comment:Hemoglobin A1C Refer ence Range Adults: 4.8 - 6.0 % Non diabetic: < 6.0 % Goal: < 7.0 %Additional Action Suggested: > 8.0 %Note: Hemoglobin A1c results are invalid for patients with abnormal amounts of HbF. Blood transfusions may impact the HbA1c concentration in the patient sample. Estimated Average Glucose 123 mg/dL [facility] Comment:eAG = Estimated ave rage glucose which is %A1C expressed asaverage glucose, using the formula of the H7Y-QhqpgorLjskmew Glucose study (ADAG), Diabetes Care, Vol.31,#8,Dec. 2007 Blood Venous blood specimen / Unknown 06/23/2024 11:03 AM EST 06/23/2024 1:12 PM EST us Naheed Howe MD LAB BLOOD ORDERABLES Fin al Result Performing Organization Address [facility] Co de Phone Number [facility] [address] [place] [phone] * Hepatic Function Panel (06/23/2024 11:03 AM EST) Bilirubin, Direct 0.2 0.0 - 0.5 mg/dL [facility] Blood Venous blood specimen / Unknown 06/23/2024 11:03 AM EST 06/23/2024 1:12 PM EST us Naheed Howe MD LAB BLOOD ORDERABLES Fin al Result Performing Organization Address [facility] Phone Number [facility] [address] [place] [phone] * (ABNORMAL) Comprehensive Metabolic Panel (06/23/2024 11:03 AM EST) Sodium 140 135 - 145 mmol/L [facility] Potassium 4.1 3.3 - 5.1 mmol/L [facility] Chloride 104 96 - 108 mmol/L [facility] Carbon Dioxide 29 22 - 29 mmol/L [facility] Anion Gap 11(L) 12 - 20 [facility] Urea Nitrogen (BUN) 14 9 - 16 mg/dL [facility] Creatinine, Serum 0.71 0.5 - 1.4 mg/dL [facility] Estimated Glomerular Filt Rate >60 [facility] Comment:Chronic Kidney Disea se: Estimated GFR < 60 mL/min/1.45u5Kxinrw Kidney Disease: Estimated GFR < 15 mL/min/1.73m2 Glucose 102 60 - 115 mg/dL [facility] Calcium 9.7 8.4 - 10.2 mg/dL [facility] Bilirubin, Total 0.4 0.0 - 1.0 mg/dL [facility] Aspartate Amino Transferase 21 5 - 31 U/L [facility] Alanine Aminotransferase 14 0 - 31 U/L [facility] Total Protein 8.0 6.5 - 8.0 g/dL [facility] Albumin Level 4.2 3.5 - 5.0 g/dL [facility] Alkaline Phosphatase 88 39 - 117 U/L [facility] Blood Venous blood specimen / Unknown 06/23/2024 11:03 AM EST 06/23/2024 1:12 PM EST Naheed Howe MD LAB BLOOD ORDERABLES Fin al Result Performing Organization Address City/State/[facility] Co de Phone Number [facility] [address] [place] [phone] from Last 3 Months Insurance [facility] C3 DENTAL-[facility] MEDICAID STAND ADULT Care Teams Medical Asst Relationship Specialty Start Date End Date Naheed Howe MD [address] [place] [phone] PCP - General Internal Medicine 08/11/24
--- OUTSIDE RECORDS SUMMARY | 2024-09-20 14:11 | XMS_ITS | Encounter Summary ---
Author Organization [employer] Address [address] [facility] 7t [place] [address] Care Team Providers Care Folded Towel Machine Operator Name Role Phone Naheed Howe MD Primary Care Provider + Reason for Visit * Reason Onset Date Comments Paperwork/Forms 09/20/2024 Encounter Details Date Type Department Care Team (Late st Contact Info) Description 09/20/2024 Telephone [facility] MEDICINE [address] [place] [address] Marleni Graff RN [address] [place] [address] Paperwork/Forms Social History Tobacco Use Types Packs/Day Years [...] encounter Miscellaneous Notes * Telephone Encounter - Marleni Graff RN - 09/20/2024 12:09 PM EDT Medical Clearance for Hearing Instrumentation [place] [facility]CP and [facility]. Confirmation received documented in this encounter Plan of Treatment Upcoming Encounters Date Type Department Care Team (Late st Contact Info) Description 09/22/2024 9:45 AM EDT Office Visit [facility] OPTOMETRY [address] [place] [address] TarkaDotty, OD [address] [place] [address] 10/10/2024 10:00 AM EDT Office Visit [facility] [address] [place] [phone] Jessica Elmore [address] [place] [address] documented as of this encounter Visit Diagnoses Not on filedocumented in this encounter Additional Health Concerns Assessment Noted Time PHQ-9 Depression Total Score: 21 025 10:30 AM EDT documented as of this encounter Care Teams Folded Towel Machine Operator Relationship Specialty Start Date End Date Naheed Howe MD [address] [place] [phone] PCP - General Internal Medicine 08/11/24 documented as of this encounter
--- OUTSIDE RECORDS SUMMARY | 2024-09-20 14:11 | XMS_ITS | Encounter Summary ---
Author Organization [employer] Address [address] [place] [address] 7t [place] [address] Care Team Providers Care Lone Lead Lineman Name Role Phone Naheed Howe MD Primary Care Provider + Reason for Visit * Reason Onset Date Comments New Patient 12/18/2022 Encounter Details Date Type Department Care Team (Late st Contact Info) Description 12/18/[address] 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 EFFECTIVE SINCE 12/18/2022 documented in this encounter Plan of Treatment Upcoming Encounters Date Type Department Care Team (Late st Contact Info) Description 09/22/2024 9:45 AM EDT Office Visit [facility] OPTOMETRY [address] [place], [place] [phone] Dotty Huang OD [address] [place] [address] 10/10/2024 10:00 AM EDT Office Visit [facility] [address] [place], [place] [phone] Jessica Elmore [address] [place], [place] [phone] documented as of this encounter Visit Diagnoses Not on filedocumented in this encounter Care Teams Lone Lead Lineman Relationship Specialty Start Date End Date Naheed Howe MD [address] [place] [phone] PCP - General Internal Medicine 08/11/24 documented as of this encounter
== END 2024-09-20 13:08 | disposition home or self-care (01) ==
LOC: HO.CT 13:07
PROVIDERS: PCP Internal Medicine; Visit Provider Internal Medicine
DX: G44.329 Chronic post-traumatic headache, not intractable (principal)
CPT/HCPCS: 70450

== ENCOUNTER → 2024-09-20 13:08 | Outpatient (BNV) | payer MEDICAID, SELFPAY | PROVIDERS: PCP Internal Medicine; Visit Provider Radiology Diagnostic Radiology | DX: Z87.820 Personal history of traumatic brain injury (principal) | CPT/HCPCS: 70450 ==

== ENCOUNTER 2024-09-28 14:47 | Outpatient (REF) | payer MEDICAID, SELFPAY ==
--- OUTSIDE RECORDS SUMMARY | 2024-09-28 15:33 | XMS_ITS | Clinical Summary ---
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 Date Type Department Care Team Description 09/22/2024 9:45 AM EDT Office Visit [facility] [address] [place], [place] [phone] Sal, Dotty, OD Diabetes type 2, no ocular involvement ([facility]) (Primary Dx); Presbyopia; Nuclear senile cataract of both eyes 09/22/2024 Travel 09/20/2024 Telephone [facility] [address] [place], [place] [phone] Marleni Graff RN Paperwork/Forms 08/24/2024 Telephone [facility] [address] [place] [phone] Naheed Howe MD 08/24/2024 Travel 08/11/2024 9:45 AM EDT Office Visit [facility] [address] [place] [address] Naheed Howe MD Type 2 diabetes mellitus with hyperglycemia, without long-term current use of insulin (CMS/HCC) (Primary Dx); Primary hypertension; Acquired hypothyroidism; Vulvar lesion; Major depression with psychotic features (CMS/HCC); Breast lesion; Tinnitus of both ears; Encounter for screening colonoscopy; Decreased hearing of both ears; Painful lumpy left breast; Screening mammogram, encounter for; Chronic post-traumatic headache, not intractable 08/11/2024 Orders Only [facility] [address] [place] [phone] Naheed Howe MD 08/11/2024 Travel 08/09/2024 Telephone [facility] [address] [place], [place] [phone] Sloane Monge MA Chart prep 08/03/2024 Population Health Risk Score [facility] () Department [address] [place] [phone] Provider, Population Health Generic 08/02/2024 Patient Outreach [facility] [address] [place] [address] Naheed Howe MD Pre-visit Planning (SDOH screening negative and tobacco screening negative) from Last 3 Months Social History Tobacco [...] Care Team (Late st Contact Info) Description 10/10/2024 10:00 AM EDT Office Visit [facility] [address] [place] [address] [phone] Jessica Elmore [address] [place], [place] [phone] Health Maintenance Due Date Last Done Comments CT Colonography 1962 Colonoscopy 1962 Colorectal Cancer Screening 1962 FIT DNA/Cologuard 1962 FIT 1962 FOBT 1962 HIV Screening 1962 Sigmoidoscopy 1962 Diabetes: Foot Exam 1972 Alcohol/Substance Use Screening 1974 Hepatitis C Screening 1980 DTaP/Tdap/Td Vaccines (1 - Tdap) 1981 Pneumococcal Vaccine: 50+ Years (1 of 2 - PCV) 1981 Pap Smear 1983 Cervical Cancer Screening 1992 HPV/Cotest 1992 Mammogram 2002 Zoster Vaccines (1 of 2) 2012 COVID-19 Vaccine (1 - season) 2024 Influenza Vaccine (#1) 2024 Diabetes: Hemoglobin A1C 12/21/2024 06/23/2024 Diabetes: Urine Protein Screening 06/23/2025 06/23/2024 Lipid Panel 06/23/2025 06/23/2024 Depression Screening 08/11/2025 08/11/2024, 08/12/19 Disability Screening 08/11/2025 08/11/2024 SDOH Screening 08/11/2025 08/11/2024 Tobacco Screening 09/23/2025 09/23/2024 Eye Exam 09/22/2026 09/22/2024, 09/02, 09/22/2024, Additional history exists RSV Patients and Patients Aged 60 years [...] Procedure Name Priority Date/Time Associated Diagnosis Comments CT HEAD WO CONTRAST Routine 09/20/2024 9 :38 PM EDT Chronic post-traumatic headache, not intractable CHLAMYDIA/N. GONORRHOEAE RNA, TMA, UROGENITAL Routine 08/11/2024 4:08 PM EDT Vulvar lesion HERPES CULTURE WITH REFLEX TYPING Routine 08/11/2024 11:00 AM EDT BACTERIAL VAGINOSIS PANEL Routine 08/11/2024 11:00 AM EDT POCT GLUCOSE Routine 08/11/2024 9:44 AM EDT Type 2 diabetes mellitus with hyperglycemia, without long-term current use of insulin ([facility]) ALBUMIN, RANDOM URINE W/CREATININE Routine 06/23/2024 11:03 AM EST Type 2 diabetes mellitus with hyperglycemia, without long-term current use of insulin ([facility]) HEMOGLOBIN A1C Routine 06/23/2024 11:03 AM EST Type 2 diabetes mellitus with hyperglycemia, without long-term current use of insulin ([facility]) LIPID PANEL WITH REFLEX TO DIRECT LDL Routine 06/23/2024 11:03 AM EST Type 2 diabetes mellitus with hyperglycemia, without long-term current use of insulin ([facility]) Primary hypertension from Last 3 Months or Most Recently Relevant to Health Maintenance Results * CT Head w/o Contrast (09/20/2024 9:38 PM EDT) Anatomical Region Laterality Modality Head, Neck Computed Tomogra phy 09/20/2024 9:38 PM EDT Narrative 09/20/2024 9:40 PM EDT ? [facility] ?[address] ?[place] [address] ? CT Scan Report ? Signed ? Patient: James Rodriguez,Ember ?MR#: [id number] ?? [id number] ? : 1960 ?Acct:[id number] ? Age/Sex: 64 / F ?ADM Date: 05/20/25 ? Loc: HO.CT ? Attending Dr: Naheed Howe MD ? Ordering Physician: Naheed Howe MD ?? Date of Service: 09/20/24 ?? Procedure(s): CT head/brain wo IV con ?? Accession Number(s): [id number] ? cc: Naheed Howe MD ? Report Number: ?? [id number]: Total DLP = ??707.00 mGy-cm ? CLINICAL HISTORY: hx ??head concusion ? CT head without contrast ? Comparison: None ? Findings: ? No intracranial mass, midline shift, hydrocephalus, or acute hemorrhage. ?? No acute process in sinuses or mastoids. No acute bony abnormality. ? Impression: ? No acute intracranial process ? This document has been electronically signed by: Franc Kan MD on ?? 09/20/2024 21:38:27 ? Dictated By: ?Franc Kan MD ? Signed By: ?<Electronically signed by Franc Kan MD in OV> ? 09/20/24 2139 ? DD/ 37 ? TD/TT: 09/20/242137 ? Calculating Machine Mechanic: ? Procedure Note Alondra Duran - 09/20/[address] [place] [address] [address] Scan Report Signed Patient: Kurtis Sherman#: [id number] : 1960Acct:[id number] Age/Sex: 64 / FADM Date: 09/20/24 Loc: HO.CT Attending Dr: Naheed Howe MD Ordering Physician: Naheed Howe MD Date of Service: 09/20/24 Procedure(s): CT head/brain wo IV con Accession Number(s): [id number] cc: Naheed Howe MD Report Number: [id number]: Total DLP = 707.00 mGy-cm CLINICAL HISTORY: hx head concusion CT head without contrast Comparison: None Findings: No intracranial mass, midline shift, hydrocephalus, or acute hemorrhage. No acute process in sinuses or mastoids. No acute bony abnormality. Impression: No acute intracranial process This document has been electronically signed by: Franc Kan MD on 09/20/2024 21:38:27 Dictated By: Franc Kan MD Signed By: <Electronically signed by Franc Kan MD in OV> 09/20/242138 DD/ 37 TD/TT: 09/20/242137 Calculating Machine Mechanic: Naheed Howe MD IMG CT PROCEDURES Final Result * Chlamydia/N. Gonorrhoeae RNA, TMA, Urogenitial (08/11/2024 4:08 PM EDT) CT PCR NOT DETECTED Not Detect. [facility] Comment:A not detected test [...] psychologicalconsequences. NG PCR NOT DETECTED Not Detect. [facility] Comment:A not detected test [...] PM EDT 08/12/2024 4:16 AM EDT Narrative [facility] - 08/12/2024 4:16 AM EDT Vaginal us Naheed Howe MD LAB MICROBIOLOGY - GENER AL ORDERABLES Final Result Performing Organization Address [facility] Co de Phone Number [facility] [address] [place] [phone] * Bacterial Vaginosis (08/11/2024 11:00 AM EDT) TRICHOMONAS VAGINALIS DETECTION BY PCR NOT DETECTED Not Detect [facility] BACTERIAL VAGINOSIS DETECTION BY PCR NEGATIVE Negative [facility] Comment:The BV organism targ [...] DETECTION BY PCR NOT DETECTED Not Detect [facility] Grisel glab krusei PCR NOT DETECTED Not Detect [facility] 08/11/2024 11:0 0 AM EDT 08/11/2024 4:08 PM EDT us Naheed Howe MD LAB MICROBIOLOGY - GENER AL ORDERABLES Final Result Performing Organization Address [facility] Co de Phone Number [facility] [address] [place] [phone] * (ABNORMAL) Herpes Simplex Virus Culture with Reflex Typing (08/11/2024 11:00 AM EDT) Pathologist [facility] HSV Culture/Type SEE NOTE(A) [facility] Comment:HERPES SIMPLEX VIRUS CULTURE W/RFL TO TYPING Micro Number: [id number] Test Status: Final Specimen Source: Vulva Specimen Quality: Adequate HSV Culture: Isolated HSV TYPE 2: Not Isolated HSV TYPE 1: IsolatedTHIS TEST WAS PERFORMED AT:[employer] [id number] MERATI,MD 08/11/2024 11:0 0 AM EDT 08/11/2024 4:08 PM EDT Narrative [facility] - 08/15/2024 1:27 PM EDT VULVAR LESION Naheed Howe MD LAB MICROBIOLOGY - GENER AL ORDERABLES Final Result [facility] [address] [place], [place] [phone] * POCT Glucose (08/11/2024 9:44 AM EDT) Glucose Blood, POC 137 60 - 200 mg/dL QC Media Lot # [id number] Lot# Expiration Date Blood Capillary blood specimen / Unknown 08/11/2024 9:44 AM EDT Naheed Howe MD POINT OF CARE TEST ENTER /EDIT ORDERABLES Final Result * (ABNORMAL) Lipid Panel with Reflex to Direct LDL (06/23/2024 11:03 AM EST) Triglycerides 106 <150 mg/dL [facility] Comment:Desirable Triglyceri de: less than 150 mg/dLBorderline High Triglyceride 150-199 mg/dLHigh Triglyceride: 200-499 mg/dLVery High Triglyceride: greater than or equal to 5OO mg/dL Cholesterol 217(H) <200 mg/dL [facility] Comment:Desirable Cholestero l: less than 200 mg/dLBorderline High Cholesterol: 200-239 mg/dLHigh Cholesterol: greater than 239 mg/dL LDL Cholesterol Calculated 135(H) <100 mg/dL [facility] Comment:Desirable LDL: less than 100 mg/dLNear Optimal/Above Optimal LDL: 110- 129 mg/dLBorderline High LDL: 130-159 mg/dLHigh LDL: 160-189 mg/dLVery High LDL: greater than or equal to 190 mg/dL HDL Cholesterol 61 >40 mg/dL [facility] Comment:Desirable HDL: great er than 40 mg/dL Note: This HDL assay may give artificially low results in patients with liver disease. Blood 06/23/2024 11:0 3 AM EST 06/23/2024 1:12 PM EST Naheed Howe MD LAB BLOOD ORDERABLES Fin al Result Performing Organization Address [facility] de Phone Number [facility] [address] [place] [phone] * Albumin, Random Urine W/Creatinine (06/23/2024 11:03 AM EST) Creatinine, Urine 136.90 mg/dL [facility] Microalbumin Urine 16.0 mg/L [facility] Microalbum Creatinine Ratio Ur 11.6 <30 ug/mg cr [facility] Comment:Albumin/Creatinine R atio Reference Ranges: Normal: < 30 ug/mg creatinine Microalbuminuria: 30 - 300 ug/mg creatinineClinical Albuminuria: > 300 ug/mg creatinine Urine (Urine, Random) 06/23/2024 11:03 AM EST 06/23/2024 1:11 PM EST Naheed Howe MD LAB URINE ORDERABLES Fin al Result Performing Organization Address [facility] de Phone Number [facility] [address] [place] [phone] * Hemoglobin A1c (06/23/2024 11:03 AM EST) Hemoglobin A1c 5.9 <6.0 % [facility] Comment:Hemoglobin A1C Refer ence Range Adults: 4.8 - 6.0 % Non diabetic: < 6.0 % Goal: < 7.0 %Additional Action Suggested: > 8.0 %Note: Hemoglobin A1c results are invalid for patients with abnormal amounts of HbF. Blood transfusions may impact the HbA1c concentration in the patient sample. Estimated Average Glucose 123 mg/dL [facility] Comment:eAG = Estimated ave rage glucose which is %A1C expressed asaverage glucose, using the formula of the Z4F-KrvfudySeytffe Glucose study (ADAG), Diabetes Care, Vol.31,#8,2007 Blood Venous blood specimen / Unknown 06/23/2024 11:03 AM EST 06/23/2024 1:12 PM EST us Naheed Howe MD LAB BLOOD ORDERABLES Fin al Result [facility] [address] [place] [phone] from Last 3 Months or Most Recently Relevant to Health Maintenance Insurance [facility] C3 DENTAL-[facility] MEDICAID STAND ADULT Care Teams Poultry Feed Supervisor Relationship Specialty Start Date End Date Naheed Howe MD [address] [place] [phone] PCP - General Internal Medicine 08/11/24
== END 2024-09-28 14:48 | disposition home or self-care (01) ==
LOC: HO.HAP 14:47
PROVIDERS: Visit Provider Internal Medicine
DX: Z46.1 Encounter for fitting and adjustment of hearing aid (principal); H90.3 Sensorineural hearing loss, bilateral
CPT/HCPCS: V5011; V5020; V5160; V5261

== ENCOUNTER 2024-10-18 10:00 | Outpatient (REF) | payer MEDICAID, SELFPAY ==
--- NOTE | ~2024-10-18 | MM_ITS ---
EXAMINATION: MM DIAGNOSTIC DIGITAL BREAST TOMOSYNTHESIS, BILATERAL Limited left breast ultrasound. CLINICAL INFORMATION: Left breast pain. COMPARISON: Mammography: Baseline.. TECHNIQUE: Digital breast mammography with tomosynthesis is performed in both the craniocaudal and mediolateral oblique views along with computer-aided detection (CAD). FINDINGS: There are scattered areas of fibroglandular density (ACR BI-RADS breast composition Category b). There are no significant masses, abnormal calcifications, or other abnormalities. Targeted color Doppler ultrasound scanning in the lower outer quadrant in the left breast area of patient's pain demonstrates normal fibronodular breast tissue. There is no sonographic abnormal findings. Results are provided to the patient at time of visit by the technologist. MM/MM tomosynthesis diagnostic BI IMPRESSION: Right: Negative. Left: No mammographic or sonographic abnormal findings to account for the patient's left breast pain. Recommend clinical evaluation and follow-up. ASSESSMENT: BI-RADS BI-RADS 1 - Negative RECOMMENDATION: 1 year F/U This patient's information was entered into a reminder system with a target due date for their next mammogram. Electronically signed by: Josefa Jasso DO 10/18/2024 11:15 AM EDT
--- OUTSIDE RECORDS SUMMARY | 2024-10-18 11:21 | XMS_ITS | Clinical Summary ---
Author Organization [facility] Address [address] [place] [address] Care Team Providers Care Copy Supervisor Name Role Phone Unavailable Primary Care Provider Unavailabl e Source Comments PLEASE NOTE, if this patient is a minor, it may be UNLAWFUL to discuss sensitive information that is contained in these records (such as FAMILY PLANNING, MENTAL HEALTH or SUBSTANCE ABUSE) with the minor patient's parent or other person without the patient's specific authorization.[facility] Social History Tobacco Use Types Packs/Day Years Used Date Smoking Tobacco: Never Assessed Comments Unknown Sex and Gender Information Value Date Recorded Sex Assigned at Female 10/17/2024 5:32 AM PDT Legal Sex Female 5:32 AM PDT Gender Identity Female 10/17/2024 5:32 AM PDT Sexual Orientation Not on file Plan of Treatment Upcoming Encounters Date Type Department Care Team (Late st Contact Info) Description 11/10/2024 1:00 PM EDT Behavioral Health Visit [facility] [address] [place] [phone] Yomaira Mcgowan APRN [address] [place] [address] Health Maintenance Due Date Last Done Comments Anxiety Screening 1962 HPV Screening 1962 Hepatitis C Screening 1962 Lipid Screening 1962 Pap + HPV 1962 Tobacco Screening 1962 HIV Screening 1977 Hypertension Screening (#1) 1980 Imm-DTaP/Tdap/Td (1 - Tdap) 1981 Cervical Cancer Screening 1983 Pap Smear 1983 Breast Cancer Screening (Mammogram) 2002 CT Colonography 2007 Colonoscopy 2007 Colorectal Cancer Screening 2007 FIT/gFOBT 2007 Fecal DNA 2007 Flexible Sigmoidoscopy 2007 Imm-Zoster, Recombinant (1 of 2) 2012 [id number] ( season) 2024 Alcohol and Drug Screen 05/04/2024 Depression Annual Screen 05/04/2024 Imm-Influenza (Season Ended) 2025 Diabetes Screening 06/23/2027 06/23/2024, 06/23/2024 Cervical Ablation/Cold-Knife Conization Discontinued Cervical Cryotherapy Discontinued Colposcopy Discontinued Endometrial Biopsy Discontinued Excision/Leep Discontinued HPV Genotyping Discontinued Vaginal Pap Discontinued Vulvoscopy Discontinued Insurance [facility] [place] [address]
== END 2024-10-18 10:01 | disposition home or self-care (01) ==
LOC: HO.MAMMO 10:00
PROVIDERS: PCP Internal Medicine; Visit Provider Internal Medicine
DX: N64.9 Disorder of breast, unspecified (principal)
CPT/HCPCS: 76642; 77062; 77066

== ENCOUNTER → 2024-10-18 10:30 | Outpatient (BNV) | payer MEDICAID, SELFPAY | PROVIDERS: PCP Internal Medicine; Visit Provider Internal Medicine | DX: R92.323 Mammographic fibroglandular density, bilateral breasts (principal); N60.22 Fibroadenosis of left breast | CPT/HCPCS: 76642; 77062; 77066 ==